=== PATIENT | female | born 1945 | race Caucasian/White ===

== ENCOUNTER 2016-06-26 21:40 | Observation (INO) | payer MEDICARE, OTHER ==
[~2016-06-26] VITALS: Ht 167.6 cm; Wt 99.6 kg
[2016-06-26 21:52] VITALS: BP 161/115; PULSE 148; RESP 18; O2SAT 96
--- NOTE | 2016-06-26 21:58 | ED.REPORT ---
HPI-Chest Pain 40 and Over Date of Service Jun 26, 2016 ED Provider: TylerjavadHiram Mckoy DO A 70 year old female with a history of diabetes and heartburn accompanied by her and daughter presents to the ED via EMS complaining of chest pain onset 1930 today while patient was sitting on her couch reading. She felt "gurgling" sensation in chest which radiated to jaws. She then felt pain in- between her shoulder blades. She has had a "rickety" jaw before but has never experienced chest pain like this. Per EMS, there were no obvious signs of ID, and she reports no history of ID. She denies any abdominal pain. She reports baseline SOB which acted up today while she was walking around in her house. She sweats very easily with movement. She has only gone into Afib once before, 20 years ago during an angiogram that required cardioversion. The patient reports having had an artery in the back of her heart that was not dilating, with the patient subsequently being put on Micardis for a while and then being put on HTC. She is unsure if she has had an angiogram in the past. She has never been diagnosed with CAD. She recently had increase in metformin drug which failed to reduce blood sugar level and resulted in baseline diarrhea. Nursing Notes Stated Complaint: CHEST PAIN Chief Complaint: Chest Pain Nursing Notes Reviewed: Yes Allergies: Coded Allergies: Iodinated Contrast Media - Oral and (Verified Allergy, Mild, Hives, 11/22/14 ) PATIENT STATES CONTRAST ALLERGY YEARS AGO DURING IVP. PATIENT STATES WAS GIVEN BENADRYL AND HAS BEEN PRE TREATED PRIOR TO RECEIVING CONTRAST SINCE. LL Penicillins (Verified Allergy, Unknown, 06/26/16) codeine (Verified Allergy, Unknown, 06/26/16) Uncoded Allergies: NOVACAINE (Allergy, Unknown, 06/26/16) Scheduled Calcium Carbonate/Vitamin D3 (Calcium + Vitamin D Tablet) 1 Each Tablet 1 EACH PO DAILY Cholecalciferol (Vitamin D3) (Vitamin D3) 2,000 Unit Capsule 4,000 UNIT PO DAILY Ferrous Sulfate, Dried (Iron) 159 Mg Tablet.er Unknown Dose PO BID Fluticasone Propionate (Fluticasone Propionate) 50 Mcg/Actuation [place].susp 15.8 ML NS DAILY Glipizide (Glipizide) 5 Mg Tablet 5 MG PO BID Hydrochlorothiazide (Hydrochlorothiazide) 25 Mg Tablet 15 MG PO DAILY Metformin (Metformin) 500 Mg Tablet 500 MG PO BID Pravastatin (Pravastatin) 10 Mg Tablet 10 MG PO HS Pregabalin (Lyrica) 75 Mg Capsule 75 MG PO DAILYWM Pregabalin (Lyrica) 150 Mg Capsule 150 MG PO HS Rivaroxaban (Xarelto) 1 Each Tab.ds.pk 1 EACH PO DAILY Telmisartan/HCTZ 80-25 mg (Micardis HCT 80-25 mg) 1 Each Tablet 1 TABLET PO DAILY Venlafaxine ER (Effexor XR) 150 Mg Capsule 150 MG PO DAILY Scheduled PRN Albuterol/Ipratropium (Combivent Respimat Inhal [place]) 120 Spr/4 Gm Inhaler 1 PUFF IH QID PRN PRN For Shortness of Breath Cyclobenzaprine (Cyclobenzaprine) 5 Mg Tablet 5 MG PO TID PRN PRN Spasm Hydrocodone-Acetaminophen 5-325 mg (Hydrocodone-Acetaminophen 5-325 mg) 1 Each Tablet 1 TABLET PO Q4H PRN PRN For Pain General Time Seen by MD: 21:57 Chief Complaint Chest pain Hx Obtained From: Patient, EMS Arrived By: Ambulance Sudden in Onset?: Yes Onset Occurred: 1 - 4 hours ago Symptom Duration: Since onset Severity: Current: Moderate Severity: Maximum: Moderate Recent Healthcare: No recent doctor visit Similar Sx Previous: No Past Medical History Past Medical History heartburn. Reports: Diabetes mellitus Past Surgical History endocardectomy. neck surgery. feet surgery. back surgery. Reports: Appendectomy, Cholecystectomy Ambulatory Status Independent Review of Systems Respiratory: Reports: Shortness of breath Cardiovascular: Reports: Chest pain GI: Denies: Abdominal pain Complete sys rev & neg: except as marked. Physical Exam Initial Vital Signs Vital Signs (First) Date Time Temp Pulse Resp B/P Pulse Ox O2 Delivery O2 Flow Rate FiO2 06/26/16 21:52 36.5 148 18 161/115 96 Room Air Initial VS: Reviewed General/Constitutional: Awake, Alert Respiratory / Chest: Atraumatic, Breath sounds NL, Breath sounds = bilat, No respiratory distress Heart Rate / Rhythm: Positive: Tachycardia heartbeat is irregularly irregular. Abdomen: Atraumatic, No guarding, No rebound Neck: Atraumatic, Full range of motion Back: Atraumatic, Full range of motion Lower Extremity / Pelvis / MS: Atraumatic, Full range of motion No lower extremity pain. Skin: Atraumatic diaphoretic Neurologic: Oriented X3, Speech NL Head / Eyes: Atraumatic, Normocephalic, PERRL, EOMI ENT: Atraumatic, Mucous membranes moist Upper Extremity / MS: Atraumatic, Full range of motion Wrist / Hand: Atraumatic, Full range of motion Ankle / Foot: Atraumatic, Full range of motion Interpretation & Diagnostics Lab Results Interpretation Result Diagram: 06/27/16 0655 06/27/16 0655 Test 06/26/16 21:45 Magnesium Level 1.8mg/dL (1.6-2.6) ECG Interpretation ECG Interpretation: Rate is 156. Afib with RVR. Time: 23:10 Interpreted by: ED physician ECG Interpretation: Rate is 64. Sinus Rhythm. spontaneously converted. Time: 00:39 Interpreted by: ED physician X-Ray Chest Interpretation Chest Xray Interpretation: Cardiomegaly, no infiltrates. Interpretation / Wet Read by: Wet read ED physician Re-Eval/Medical Decision Med Decision/Clinical Course 70-year-old female with history of diabetes, hypertension, and one remote episode of atrial fibrillation 20 years ago that happened while an angiogram was being performed requiring cardioversion presents with heart rate of 160 and feeling short of breath, diaphoretic, dizzy, and some heaviness/pressure in her chest. Diltiazem pushed. After diltiazem 20 mg IV was given a heart rate slowed from 160 down to approximately 110. At recheck her heart rate has risen back up to 140. Patient's chest pain, dizziness and shortness of breath resolved at this time. We tried labetalol 10 mg IV. Labetalol was ineffective and heart rate remained at 140, however blood pressure dropped to 115/70. Discussed cardioversion as patient is currently anticoagulated versus diltiazem drip. Patient elected diltiazem drip and admission to the hospital. When diltiazem was brought in the room, patient cardioverted spontaneously with a heart rate of 62. Repeat EKG performed which confirmed sinus rhythm. Initial lab work revealed leukocytosis and normal troponin. Repeat troponin is in the indeterminate range. Discussed observation admission patient with echocardiogram, and she notes that she would not feel comfortable going home. I believe the elevated troponin is from demand ischemia. No triggers for A. fib have been identified in the ER today. UA is pending at the time of admission. Source of Hx: Old records, EMS Time of Eval: 00:55 Re-Evaluation/Progress Note: Rechecked patient, explained test results and plan for admission. Patient understands and agrees with the plan. Consultation : Referral / Consult Name: Yael Dong MD Consulted With: Hospitalist Call Returned at: 01:00 [employer] Utility Worker: Will see patient, Agrees with eval, Accepts admit Note: Discussed patient case with Dr. Dong who accepts patient admit. Counseled Regarding: Diagnosis, Lab results, Need for admission Discharge & Departure Primary Impression: Atrial fibrillation with rapid ventricular response Additional Impressions: Elevated troponin Chest pain Chest pain type: chest pain due to myocardial ischemia Qualified Code: I20.9 - Angina pectoris, unspecified DERICK (acute kidney injury) Hyperglycemia Disposition: ADMITTED TO HOSPITAL Discharge Condition All VS Reviewed: Yes Condition: Stable Referrals: Dipesh Navarro MD (PCP) Crit Care Except Billable Proc Time Spent: 30-74 minutes Services Performed: Patient management by me, Time spent at bedside, Reviewing test results, Reviewing imaging, Discussing patient care, Documentation in record, Time with fam/surrogate Scribe Attestation Portions of this note were transcribed by Rosendo Stanford. I, Dr. Mack personally performed the history, physical exam and medical decision-making; I reviewed and confirmed the accuracy of the information in the transcribed note. Signed by: Adarsh Toney, 06/27/2016 0104. copies to: Dipesh Navarro MD, Gary R DO Jun 26, 2016 21:58 Rosendo Stanford Jun 26, 2016 22:16 119U/L (25-165) Total Protein 7.7g/dL (6.4-8.4) Albumin 4.4g/dL (3.4-5.0) Troponin T 0.016ug/L (0.0-0.011) ECG Interpretation ECG Interpretation: Rate is 156. Afib with RVR. Time: 23:10 Interpreted by: ED physician ECG Interpretation: Rate is 64. Sinus Rhythm. spontaneously converted. Time: 00:39 Interpreted by: ED physician X-Ray Chest Interpretation Chest Xray Interpretation: Cardiomegaly, but no infiltrates. Interpretation / Wet Read by: Wet read ED physician Re-Eval/Medical Decision Med Decision/Clinical Course After diltiazem 20 mg IV was given a heart rate slowed from 160 down to approximately 110. At recheck her heart rate has risen back up to 140. We will try labetalol 10 mg IV. Source of Hx: Old records, EMS Time of Eval: 00:55 Re-Evaluation/Progress Note: Rechecked patient, explained test results and plan for admission. Patient understands and agrees with the plan. Consultation : Referral / Consult Name: Yael Dong MD Consulted With: Hospitalist Call Returned at: 01:00 [employer] Worker: Will see patient, Agrees with eval, Accepts admit Note: Discussed patient case with Dr. Dong who accepts patient admit. Counseled Regarding: Diagnosis, Lab results, Need for admission Discharge & Departure Primary Impression: Elevated troponin Additional Impression: Chest pain Disposition: ADMITTED TO HOSPITAL Discharge Condition All VS Reviewed: Yes Condition: Stable Referrals: Dipesh Navarro MD (PCP) Scribe Attestation Portions of this note were transcribed by Rosendo Stanford. IDr. Mack personally performed the history, physical exam and medical decision-making; I reviewed and confirmed the accuracy of the information in the transcribed note. Signed by: Adarsh Toney, 06/27/2016 0104. copies to: Dipesh Navarro MD, Gary R DO Jun 26, 2016 21:58 Rosendo Stanford Jun 26, 2016 22:16
[2016-06-26 21:59] LABS: BASOPHILS % (AUTO) 0.3 % (0-3); EOSINOPHILS % (AUTO) 1.7 % (0-5); Mean Corpuscular Hemoglobin 29.2 pg (27.0-35.0); Mean Corpuscular Volume 90.8 fL (81-100); NEUTROPHILS % (AUTO) 59.9 % (40-74); Platelet Count 356 bil/L (150-400)
[2016-06-26] MEDS ORDERED: Diltiazem 5 mg/mL 5 mL Inj IVPUSH ONE (22:15)
[2016-06-26 22:17] VITALS: BP 155/98; PULSE 155; RESP 18; O2SAT 96
[2016-06-26 22:21] LABS: TROPONIN T 0.01 ug/L (0.0-0.011)
[2016-06-26 22:33] LABS: Magnesium 1.8 mg/dL (1.6-2.6)
[2016-06-26 23:08] VITALS: BP 133/96; PULSE 145; RESP 14; O2SAT 96
[2016-06-26] MEDS ORDERED: Labetalol 5 mg/mL 4 mL Inj IVPUSH ONE ×2 (23:15→23:40)
[2016-06-26 23:29] VITALS: BP 118/81; PULSE 117; RESP 18; O2SAT 95
[2016-06-26] MEDS ORDERED: Labetalol 5 mg/mL 20 mL Inj ONE (23:51)
[2016-06-26] MEDS: Diltiazem Inj 125 MG in 0.9% Sodium Chloride 100 ML, Pharmacy To Mix 1 EA IV SCH (23:55)
[2016-06-27] VITALS (11 sets, daily range): BP systolic 114–175; BP diastolic 52–82; PULSE 58–70; RESP 18–20; O2SAT 95–98
[2016-06-27] MEDS ORDERED: Ondansetron 2 mg/mL 2 mL Inj IVPUSH PRN ×2 (01:05→03:15)
[2016-06-27] MEDS ORDERED: Alum-Mag Hydrox-Simeth 30 mL Suspension PO PRN ×2 (01:05→03:15)
--- NOTE | 2016-06-27 03:12 | PCM.HPMED ---
Subjective Date of Service Jun 27, 2016 Primary Provider: Admitting Physician: Primary Care Physician: Dipesh Navarro MD Attending Physician: Chief Complaint: Chest pain History of Present Illness: Patient is a 70 year old female with a history of diabetes, Factor V Leiden with recurrent DVTs, on Xarelto, history of TIA, who presents to the ED via EMS complaining of chest pain onset 1930 today while patient was sitting on her couch reading. She states she felt "gurgling" sensation in her chest and chest pressure which radiated to jaws and between her shoulder blades. She states she has never experienced pain like this before. She denies any abdominal pain. She reports baseline shortness of breath on exertion which has worsened since March, to the point that she often becomes dyspneic when crossing the house or walking to the mailbox. She reports she sweats very easily with movement. She states she has only had afib once before, 20 years ago during an angiogram that required cardioversion. She has never been diagnosed with CAD and denies history of AL. She recently had increase in metformin dosage which failed to reduce blood sugar level and resulted in baseline diarrhea. She states she has been worked up for a thyroid mass that has been bothering her; she was seen by Dr. Oscar and diagnosed with multinodular goiter about 2 weeks ago. On 05/27/16, TSH was 0.857 and free T4 was 1.19. In the ED, HR was 148, BP 161/115, WBC 17.2, Cr 1.26, glucose 206. Troponin was initially 0.01, increased to 0.016. EKG showed afib with RVR. CXR was negative. She was given IV boluses of diltiazem and labetalol without success. A diltiazem drip was ordered but she then converted back into sinus rhythm before it was started. Review of Systems: Comprehensive review of systems conducted and was negative except for the pertinent positives listed above. Allergies Coded Allergies: Iodinated Contrast Media - Oral and (Verified Allergy, Mild, Hives, 11/22/14 ) PATIENT STATES CONTRAST ALLERGY YEARS AGO DURING IVP. PATIENT STATES WAS GIVEN BENADRYL AND HAS BEEN PRE TREATED PRIOR TO RECEIVING CONTRAST SINCE. LL Penicillins (Verified Allergy, Unknown, 06/26/16) codeine (Verified Allergy, Unknown, 06/26/16) Uncoded Allergies: NOVACAINE (Allergy, Unknown, 06/26/16) Home Medications Per [employer] Record (06/11/16) Effexor XR 150 mg capsule,extended release TAKE ONE CAPSULE BY MOUTH ONE TIME DAILY for mood Flexeril Oral Tablet 5 MG TAKE ONE TABLET BY MOUTH THREE TIMES DAILY NEEDED fluticasone 50 mcg/actuation nasal spray,suspension spray 1 spray by intranasal route every day in each nostril GlipiZIDE Oral Tablet 5 MG TAKE ONE TABLET BY MOUTH TWICE DAILY BEFORE MEALS hydrochlorothiazide 25 mg tablet take 1 tablet by oral route every day hydrocodone 5 mg-acetaminophen 325 mg tablet take 1 tablet by oral route every 6 hours as needed for pain Lyrica 75 mg capsule 1 am and 2 po QPM metformin ER 500 mg tablet,extended release 24hr take 1 tablet by oral route twice every day with meal for diabetes. Micardis HCT 80 mg-25 mg tablet TAKE ONE TABLET BY MOUTH ONE TIME DAILY for high blood pressure. nystatin 100,000 unit/gram topical cream apply by topical route 2 times every day to the affected area(s) omeprazole 20 mg capsule,delayed release take 1 capsule by oral route every day before a meal pravastatin 20 mg tablet take 1 Tablet by oral route every day for high cholesterol. Slow Release Iron 160 mg (50 mg iron) tablet,extended release take 1 tablet orally twice daily. Xarelto 20 mg tablet TAKE ONE TABLET BY MOUTH WITH THE EVENING MEAL Zyrtec 10 mg tablet take 1 tablet by oral route every day PMH Factor V Leiden Recurrent DVTs Hypertension Obstructive sleep apnea Depression History of TIA GERD Diabetes mellitus Surgical History Endocardectomy. Neck surgery. Feet surgery. Back surgery. Appendectomy Cholecystectomy Family History Grandmother: of AL at 67 Other grandmother: AL Grandfather: AL Mother: Stroke Aunt: Stroke Social History Hx Alcohol Use: No Hx Substance Use: No Exam Vital Signs Vital Sign - Last Date Time Temp Pulse Resp B/P Pulse Ox O2 Delivery O2 Flow Rate FiO2 06/27/16 00:41 36.7 62 18 142/69 98 Room Air Exam General: Alert, Oriented X3, Cooperative, No acute distress Head: Normocephalic, atraumatic. External ears normal. Eyes: PERRLA, EOMI. Anicteric sclerae. Mouth: Mouth normal, Mucous membranes moist/pink Neck: Neck supple with full range of motion. Chest& Lungs: Clear to auscultation bilaterally with no crackles, wheezes, or rhonchi. Cardiovascular: Regular rate/rhythm, Normal S1, Normal S2, No murmurs/rubs/ gallops Abdomen: Non-tender, Non-distended, No masses, Normoactive bowel tones, Soft Musculoskeletal: Normal range of motion Extremities: Mild-moderate bilateral lower extremity edema Neurological: Grossly neurologically intact. Normal speech Lab and Diagnostics Result Diagram: 06/26/16214406/26/162144 Assessment & Plan Patient is a 70 year old female with a history of diabetes, Factor V Leiden with recurrent DVTs, on Xarelto, history of TIA, who presents to the ED via EMS complaining of chest pain. Admitted for afib with RVR. 1. Atrial fibrillation with rapid ventricular rate, acute. Present on admission. - Pt presented with afib in 150s, which spontaneously converted back to sinus rhythm. - Monitor on telemetry - Continue home Xarelto - Recheck TSH 2. Acute kidney injury. Present on admission. - Pt presents with mild DERICK (Cr 1.26) after afib with RVR, likely due to poor perfusion. Baseline Cr around 1.0. - NS @ 80 ml/hr - CMP in AM 3. Elevated troponin, acute. Present on admission. - Troponin became elevated after admission (0.01 --> 0.016). Likely secondary to demand ischemia. - Continue to trend troponin 4. Diabetes mellitus type 2 - BG 206 on admission. - Humalog medium dose correctional scale - Hold home metformin and glipizide - A1c ordered 5. Factor V Leiden with recurrent DVTs - Patient on Xarelto at home; will continue 6. Hypertension - Continue home telmisartan and HCTZ 7. Hyperlipidemia - Continue home pravastatin 8. Depression - Continue home Effexor 9. GERD - Protonix 20 mg daily 10. Chronic back pain - Continue home Lyrica, Flexeril, [place] 11. Other chronic conditions Obstructive sleep apnea History of TIA Note: Med Rec not complete. Day team to reconcile. - Bowel regimen as needed - Antiemetic as needed Patient is admitted under observation status with expected length of stay less than 2 midnights due to severity of presenting symptoms, risk of adverse event, and complexity of treatment plan. VTE Prophylaxis: Sub-Q Heparin (Unfractionated) Resuscitation Status: CPR: Attempt Resuscitation Attending Statement Pt seen and examined by myself and agree with above plan. Jean No Jun 27, 2016 01:12 Yael Dong MD Jun 27, 2016 06:27
[2016-06-27] MEDS ORDERED: Polyethylene Glycol (PEG) 17 Gm Powder PO PRN (03:15)
[2016-06-27] MEDS ORDERED: Glucose 40% Oral Gel 15 Gm Tube PO PRN (03:15)
[2016-06-27 04:52] LABS: APPEARANCE,URINE CLEAR (CLEAR,HAZY); COLOR,URINE YELLOW (YELLOW); OCCULT BLOOD,URINE SMALL (NEGATIVE); PH,URINE 5.5 (5.0-8.0); UROBILINOGEN,URINE NORMAL (NORMAL)
[2016-06-27] MEDS: 0.9% Sodium Chloride 1,000 ML IV SCH ×2 (05:02→16:08)
--- NOTE | 2016-06-27 05:21 | NUR ---
admit: admit questions complete, daughter to bring in med list in am, and CPAP. pt denies chest pain/discomfort/SOB. VSS. Tele SR 60's. pt is A&OX3 cooperative with care. UA sent. will continue to monitor.
[2016-06-27 07:09] LABS: BASOPHILS % (AUTO) 0.4 % (0-3); EOSINOPHILS % (AUTO) 2.2 % (0-5); MONOCYTES % (AUTO) 6.8 % (4-12); Mean Corpuscular Volume 91.5 fL (81-100); NEUTROPHILS % (AUTO) 47.6 % (40-74); Platelet Count 292 bil/L (150-400)
[2016-06-27] MEDS: Pantoprazole 20 mg ER24 Tablet PO SCH (07:59)
[2016-06-27] MEDS: Insulin LISPRO 300 Unit/3 mL Inj SUBQ SCH ×4 (08:00→20:44)
--- NOTE | 2016-06-27 08:13 | DRSVH ---
PROCEDURE: X-RAY CHEST ONE VIEW, PORTABLE ([id number]) INDICATIONS: chest pain TECHNIQUE: One view of the chest was acquired. COMPARISON: None. FINDINGS: Surgical changes and devices: Cervical fixation hardware is partially visualized and is grossly intac t. Lungs and pleura: Lung volumes are low. There is mild prominence of interstitium. Mediastinum: Mediastinal contours appear normal. Heart size is mildly enlarged. Bones and chest wall: No suspicious bony lesions. Overlying soft tissues appear unremarkable. IMPRESSION: Low lung volumes, mild interstitial prominence, and mild cardiomegaly. These findings may be associated with mild fluid overload. Dictated by: Kayla St M.D. on 06/27/2016 at 8:11 Approved by: Kayla St M.D. on 06/27/2016 at 8:12
[2016-06-27] MEDS ORDERED: Influenza (Adult) Vaccine 0.5 mL Syringe IM ONE (08:30)
[2016-06-27] MEDS: Heparin 5,000 Unit/mL Inj SUBQ SCH ×2 (08:52→16:38)
[2016-06-27] MEDS ORDERED: GLPZ5T PO (09:21)
[2016-06-27] MEDS ORDERED: PREG150C PO (09:21)
[2016-06-27] MEDS ORDERED: HYDR-4003 PO (09:21)
[2016-06-27] MEDS ORDERED: HYDR25TA4 PO (09:21)
[2016-06-27] MEDS ORDERED: VENL150C PO (09:21)
[2016-06-27] MEDS ORDERED: METF500T4 PO (09:21)
[2016-06-27] MEDS ORDERED: TELM1TAB PO (09:21)
[2016-06-27] MEDS ORDERED: IPRA4AER IH (09:21)
[2016-06-27] MEDS ORDERED: PREG75CA PO (09:21)
[2016-06-27] MEDS ORDERED: FLUT15.88 NS (09:21)
[2016-06-27] MEDS ORDERED: FERR159T2 PO (09:21)
[2016-06-27] MEDS ORDERED: PRAV10TA2 PO (09:21)
[2016-06-27] MEDS ORDERED: CHOL200047 PO (09:21)
[2016-06-27] MEDS ORDERED: CALC-140 PO (09:21)
[2016-06-27] MEDS ORDERED: RIVA1TAB PO (09:21)
[2016-06-27] MEDS ORDERED: CYCL5TAB PO (09:21)
[2016-06-27] MEDS ORDERED: TELMISARTAN PO SCH (12:00)
[2016-06-27] MEDS ORDERED: HCTZ PO SCH (12:00)
--- NOTE | 2016-06-27 12:06 | NUR ---
GREGORIO explained and signed. Copy of GREGORIO and Medicare self administered medication information provided.
[2016-06-27] MEDS ORDERED: Albuterol-Ipratropium 3 mL Inhalation Solution NEB PRN (12:15)
[2016-06-27] MEDS: Venlafaxine XR 75 mg ER24 Capsule PO SCH (12:56)
--- NOTE | 2016-06-27 15:11 | NUR ---
Social Work: Initial Assessment Data & Assessment: See Initial Assessment. EMR Reviewed. Patient is a 70 year old female that admitted on 06/27/16 due to AFIB with RVR/Eleveted Trop. per H& P. Building Construction Superintendent met with patient and patient's daughter at bedside to complete initial assessment, Social Work role explained and discharge planning discussed. Advanced directives were discussed and SW provided patient with Advance directive paperwork. Patient does not have Advance Directives. Patient confirmed that his PCP is Dr. Dipesh Navarro. Patient's insurance is Medicare and [employer] as secondary. Patient does not have any LTC or VA benefits. Patient does not have a re-admit score. Patient reports that she is independent at baseline but does have access to a walker and cane if needed. Patient reports no HH or SNF history. Patient lives at home with his in a one story home with five steps to enter. Pt's family to provide transport home at discharge. SW provided phone number and plan on white board in room. SW will continue to follow. Plan: Pt to likely discharge home no needs via POV. SW will continue to follow. Nora Tapia LMSW, RAMÍREZ Addendum: 06/27/16 at 1519 by NORA TAPIA Amended: Links added.
--- NOTE | 2016-06-27 17:35 | DRSVH ---
[facility] [address] [place] [address] Echocardiogram Report Name: MARCOS BRANDT LStudy Date: 03/2017 Height: 66 in Hospital Exam Location: [facility] Weight: 220 lb Gender: Female BSA: 2.1 m2 : 1945 Age: 70 yrs BP: 114/64 mmHg Reason For Study: CHEST PAIN, A-FIB. Ordering Physician: Performed By: Padmini Art Referring Physician: Dipesh Navarro Interpretation Summary The patient was in normal sinus rhythm during the exam. The left ventricular cavity is small. The ejection fraction is estimated to be 70-75%. There are no focal wall motion abnormalities. Assessment of diastolic parameters indicates normal left ventricular diastolic function and normal filling pressures. The right ventricle grossly appears normal in size with probable normal systolic function. There is no significant valvular heart disease. The echocardiogram is within normal limits. Procedure: A two-dimensional transthoracic echocardiogram with color flow and Doppler was performed. The study quality was technically difficult. A contrast injection of Definity was performed to improve assessment of LV function. Contrast was injected into an intravenous site in the right arm. A total of 5 cc of contrast was given. There is no prior echocardiogram noted for this patient. The patient was in normal sinus rhythm during the exam. Left Ventricle: The left ventricular cavity is small. The ejection fraction is estimated to be 70-75%. There are no focal wall motion abnormalities. Spectral Doppler of the mitral valve shows a normal E/A wave ratio. Assessment of diastolic parameters indicates normal left ventricular diastolic function and normal filling pressures. Right Ventricle: The right ventricle grossly appears normal in size with probable normal systolic function. Atria: The left atrium is mildly dilated. Right atrial size is normal. There is no Doppler evidence for an atrial septal defect. Mitral Valve: The mitral valve is grossly normal. There is mild mitral annular calcification. There is no mitral regurgitation noted. Aortic Valve: The aortic valve is not well visualized. The aortic valve opens well. No aortic regurgitation is present. Tricuspid Valve: The tricuspid valve is not well visualized, but is grossly normal. No tricuspid regurgitation. Pulmonic Valve: The pulmonic valve is not well visualized. There is no pulmonic valvular regurgitation. Great Vessels: The aortic root is normal size. The dimensions of the ascending aorta are normal. The pulmonary artery is normal size. The IVC was not well visualized secondary to technical limitations making central venous pressures difficult to estimate. Pericardium/ Pleura There is no pericardial effusion. There is no pleural effusion. MMode/2D Measurements & Calculations LVIDd: 4.6 cm LA dimension: 4.3 cm RA long axis LVOT diam: 2.1 cm LVIDs: 3.5 cm AoV Opening FS: 24.9 % LA A2 area: 25.8 cm RA area EPSS: 1.0 cm LA A4 area: 21.2 cm Ao root diam IVSd: 1.1 cm LA length (vol) : 18.3 cm LVPWd: 1.2 cm RA vol asc Aorta Diam LA vol: 86.2 ml : 54.7 ml LA vol index RA Ao Arch Diam (Prox : 26.2 mm2 Trans): 3.0 cm : 41.4 ml/m2 LV ryder. diameter/BSA LV sys. diameter/BSA (cm/m^2): 2.2 (cm/m^2): 1.7 Doppler Measurements & Calculations Ao V2 max MV E max edward MV E/A: 1.4 PA V2 max : 175.0 cm/sec : 103.0 cm/sec Med Peak E' Edward : 115.7 cm/sec Ao max PG MV A max edward PA mean PG : 12.3 mmHg : 75.6 cm/sec E/E' med: 10.1 Ao mean PG MV P1/2t: 72.4 msec Lat Peak E' Edward PA Accel Time : 0.09 sec LVOT Max Edward E/E' lat: 9.7 : 130.2 cm/sec E/e' average: 9.9 Pulm A Revs Dur MAHESH(I,D): 2.7 cm sev ratio MV A dur: 0.14 sec MV dec time MV P1/2t max edward Ao V2 mean LV V1 max PG : 0.26 sec : 110.9 cm/sec MVA(P1/2t): 3.0 cm2 Ao V2 VTI: 39.3 cm LV V1 VTI MAHESH(V,D): 2.6 cm2 : 30.8 cm PA V2 mean MAHESH indexed to BSA Pulelaine Cain Revs Dur - MV : 83.7 cm/sec (cm^2/m^2): 1.3 A Dur: 0.01 msec Reading Physician:05:34 PM
[2016-06-27] MEDS: Diltiazem Inj 125 MG in 0.9% Sodium Chloride 100 ML, Pharmacy To Mix 1 EA IV SCH (23:14)
[2016-06-28] VITALS (12 sets, daily range): BP systolic 130–184; BP diastolic 73–85; PULSE 61–69; RESP 16–18; O2SAT 96–97
[2016-06-28] MEDS: Heparin 5,000 Unit/mL Inj SUBQ SCH (00:30)
--- NOTE | 2016-06-28 01:24 | NUR ---
Mobility Pt has remained SBA to the bathroom so far this shift. Pt has been up several times ns has required minimal assistance to achieve a standing position. Pt has had a stable cardiac rhythm all night and no complaints of chest discomfort.
[2016-06-28] MEDS: 0.9% Sodium Chloride 1,000 ML IV SCH (04:15)
[2016-06-28 07:02] LABS: BASOPHILS % (AUTO) 0.3 % (0-3); EOSINOPHILS % (AUTO) 4.2 % (0-5); MONOCYTES % (AUTO) 7.6 % (4-12); Mean Corpuscular Hemoglobin 29.3 pg (27.0-35.0); Mean Corpuscular Volume 92.6 fL (81-100); NEUTROPHILS % (AUTO) 44.2 % (40-74); Platelet Count 251 bil/L (150-400)
[2016-06-28] MEDS: Insulin LISPRO 300 Unit/3 mL Inj SUBQ SCH ×4 (08:00→22:00)
[2016-06-28] MEDS: Venlafaxine XR 75 mg ER24 Capsule PO SCH (08:29)
[2016-06-28] MEDS ORDERED: Calcium Carbonate (Oyster Shell) 500 mg Tablet PO SCH (08:30)
[2016-06-28] MEDS: Pantoprazole 20 mg ER24 Tablet PO SCH (08:34)
--- NOTE | 2016-06-28 10:18 | PCM.PNMED ---
Subjective Date of Service Jun 28, 2016 Subjective Asuncion reports she is doing better this morning, but continues to have some lightheadedness with standing up and some exertional dyspnea. She has not had any CP since admission. Exam Vital Signs Vital Sign - Last Date Time Temp Pulse Resp B/P Pulse Ox O2 Delivery O2 Flow Rate FiO2 06/28/16 10:06 36.7 67 16 130/77 97 Room Air Intake and Output 06/27/16 06/27/16 06/28/16 Cumulative From/Thru 15:00 23:00 07:00 06/26/16 21:52 - 06/28/16 06:03 Intake Total 1872 ml 236 ml 2108 ml Output Total 1507 ml 1200 ml 2857 ml Balance 365 ml -964 ml -749 ml Intake Oral 837 ml 236 ml 1073 ml IV Total 1035 ml 1035 ml Output Urine Total 1500 ml 1200 ml 2850 ml Stool Total 7 ml 7 ml Exam General: Alert, Oriented X3, Cooperative, No acute distress Chest& Lungs: Clear to auscultation bilaterally with no crackles, wheezes, or rhonchi. Cardiovascular: Regular rate/rhythm, Normal S1, Normal S2, No murmurs/rubs/ gallops Abdomen: Non-tender, Non-distended, No masses, Normoactive bowel tones, Soft Musculoskeletal: Normal range of motion Neurological: Grossly intact, no focal weakness. IVs and Medications Medications Reviewed: Medications were reviewed in detail Lab and Diagnostics Result Diagram: 06/28/1660606/28/16606 Assessment & Plan Patient is a 70 year old female with a history of diabetes, Factor V Leiden with recurrent DVTs, on Xarelto, history of TIA, who presents to the ED via EMS complaining of chest pain. Admitted for afib with RVR. 1. Atrial fibrillation with rapid ventricular rate, acute. Present on admission. - Pt presented with afib in 150s, which spontaneously converted back to sinus rhythm. She reports her chest pain symptom was more of a chest flutter and palpitation with some mild heaviness. This resolved after her Afib converted back to NSR. - Monitor on telemetry - Continue home Xarelto - TSH 1.52 - Continues to be in NSR 2. Acute kidney injury. Present on admission. Resolved - Pt presents with mild DERICK (Cr 1.26) after afib with RVR, likely due to poor perfusion. Baseline Cr around 1.0. - NS discontinued - Resolved today after hydration. 3. Elevated troponin, acute. Present on admission. - Troponin became elevated after admission (0.01 --> 0.016). Likely secondary to demand ischemia. - Troponin elevated to 0.03, but then trended downwards after. - Will plan for MIBI stress test, patient has severe neuropathy and is unable to do an ETT. 4. Diabetes mellitus type 2 - BG 206 on admission. - Humalog medium dose correctional scale - Hold home metformin and glipizide - A1c ordered 5. Factor V Leiden with recurrent DVTs - Patient on Xarelto at home; will continue 6. Hypertension - Continue home telmisartan and HCTZ 7. Hyperlipidemia - Continue home pravastatin - Elevated Triglycerides only on Lipid Panel here. 8. Depression - Continue home Effexor 9. GERD - Protonix 20 mg daily 10. Chronic back pain - Continue home Lyrica, Flexeril, [place] 11. Other chronic conditions Obstructive sleep apnea - using own CPAP History of TIA - Bowel regimen as needed - Antiemetic as needed Dispo: Likely discharge tomorrow after MIBI stress test if stable. Pain Evaluation: Adequate Pain Control VTE Prophylaxis: Sub-Q Heparin (Unfractionated) VTE Mechanical Devices: Venous Foot Pump Resuscitation Status: CPR: Attempt Resuscitation Attending Statement The patient was seen and examined together with Dr. Julian on 06/28/16 and I agree with the history, exam and plan as outlined in the note above. Domenic Julian DO Jun 28, 2016 10:12 Forest Garnett Jun 29, 2016 17:54
--- NOTE | 2016-06-28 14:47 | NUR ---
Social Work-readiness for discharge: Data:EMR reviewed. Pt is on day 1 of hospitalization for AFIB per H&P. Pt will likely be ready to discharge tomorrow. Pt resides at home with where she remains independent with ADLs. Pt has been up independent in her room. No anticipated discharge needs. SW will continue to follow. Assessment:Pt who is independent at baseline. Plan:Pt to discharge home when medically stable via POV. No anticipated discharge needs. SW will continue to follow. ROB Jimenez
--- NOTE | 2016-06-28 18:28 | NUR ---
shift summary Pt is a SBA to bathroom, reports some dizziness with standing and ambulation. Orthostatic vital signs are checked. On tele- stable cardiac rhythm. Complains of neuropathic pain and was given tylenol x1.
[2016-06-29 01:03] VITALS: BP 185/81; PULSE 69; RESP 18; O2SAT 97
[2016-06-29 04:57] VITALS: BP_SYST 154; BP_SYST 169; BP_SYST 171; BP_DIAS 78; BP_DIAS 89; BP_DIAS 92; PULSE 64; RESP 18; O2SAT 96
--- NOTE | 2016-06-29 05:45 | NUR ---
Pain: Pt c/o generalized back/leg pain which is chronic for pt; Tylenol administered and ice pack, effective. Pt denied chest pain and SOB. Pt slept most of the night, pleasant and cooperative with care.
[2016-06-29] MEDS: Insulin LISPRO 300 Unit/3 mL Inj SUBQ SCH ×3 (08:00→17:11)
[2016-06-29 08:15] VITALS: PULSE 64; RESP 18; O2SAT 97
--- NOTE | 2016-06-29 09:00 | NUR ---
Pt off Floor for Stress Test Tele notified and removed, Taken down in WC. No s/sx of distress.
[2016-06-29 10:49] VITALS: PULSE 61
[2016-06-29 11:29] VITALS: BP 150/75; PULSE 71
[2016-06-29] MEDS: Pantoprazole 20 mg ER24 Tablet PO SCH (11:51)
[2016-06-29] MEDS: Venlafaxine XR 75 mg ER24 Capsule PO SCH (11:53)
[2016-06-29] MEDS ORDERED: Calcium Carbonate (Oyster Shell) 500 mg Tablet PO SCH (12:13)
[2016-06-29 13:05] VITALS: BP 161/72; PULSE 71; RESP 18; O2SAT 96
--- NOTE | 2016-06-29 15:06 | DRSVH ---
PROCEDURE: ONE DAY PHARMACOLOGICAL STRESS TEST. Rest and pharmacological stress myocardial perfusio n SPECT with gated imaging and ejection fraction RADIOPHARMACEUTICAL: 10.8 mCi Tc-99m tetrofosmin IV at rest and 30.8 mCi Tc-99m tetrofosmin IV at pe ak effect of pharmacological stress. A [id number] was performed. INDICATIONS: CHEST PAIN TECHNIQUE: Radiopharmaceutical was injected at peak stress test and also at rest. SPECT images were obtained. SPECT myocardial perfusion images were displayed in short axis, horizontal long axis, and vertical long axis views. Gated images were reviewed using MyTime software. COMPARISON: None. CARDIAC STRESS: A pharmacologic stress test was performed under the supervision of attending staff u sing an infusion of Lexiscan as per protocol. Hemodynamic Data: There is normal blood pressure and heart rate response to pharmacologic stress. Symptoms: The patient had some chest pain and nausea, which resolved with 100 mg of IV aminophylline . Aminophylline: IV aminophylline was given (100 mg). EKG: Baseline rhythm was sinus with some nonspecific ST-T changes. During stress there was no convi ncing ischemic change. The patient had some intermittent PVCs without any ventricular tachycardia. FINDINGS: Raw Data: There appears to be adequate myocardial uptake. Breast shadow was seen. Left Ventricular Function: The stress LV ejection fraction was 84%. Left ventricular function appea rs to be hyperdynamic. I do not see any obvious wall motion abnormalities. On visual inspection, I do not see any significant transient ischemic dilatation. Resting LV and diastolic volume is 71 mL. Myocardial Perfusion: Resting supine and stress prone images reveal mildly decreased perfusion of th e distal anterior wall and apex, however, stress supine images reveal normal myocardial perfusion. I do not see any convincing ischemia infarction present. IMPRESSION: Stress supine images reveal normal myocardial perfusion, hence, I will call this study a normal myocardial perfusion study. Left ventricular function is hyperdynamic. Overall this is a lo w-risk myocardial perfusion scan. Dictated by: Aston Cheema M.D. on 06/29/2016 at 14:11 Transcribed by: LAISHA on 06/29/2016 at 18:05 Approved by: Aston Cheema M.D. on 06/30/2016 at 12:45
--- NOTE | 2016-06-29 15:28 | PCM.DIMED ---
Discharge Instructions Date of Service Jun 29, 2016 Dates of Hospitalization Jun 27, 2016 at 01:35 Discharge Diagnosis Discharge Diagnosis Atrial fibrillation with rapid ventricular rate Acute kidney injury. Present on admission. Resolved Elevated troponin - stable Diabetes mellitus type 2 Factor V Leiden with recurrent DVTs Hypertension Hyperlipidemia Depression GERD Chronic back pain Obstructive sleep apnea - using own CPAP History of TIA Medication Instructions Continue taking your medications as instructed Drink at least 4-5 glasses of water daily to keep from being dehydrated Diet Heart Healthy Activity No restrictions Call your provider Fever or Chills, Shortness of breath, Chest pain, Weakness (unilateral) Patient Instructions Please follow up with your PCP within 1 week to follow up on your Atrial fibrillation admission Follow-up Provider: Dipesh Navarro MD Follow-up with PCP in: 1 week Domenic Julian DO Jun 29, 2016 15:27
--- NOTE | 2016-06-29 16:36 | NUR ---
Social Work-discharge: Data:EMR reviewed. Pt is on day 2 of hospitalization for AFIB per H&P. Pt is medically stable for discharge. Pt has been up independent in her room. No discharge needs identified. All updated and agreeable to plan. Assessment:pt who is independent at baseline. Plan:Pt to discharge home when medically stable via POV. No discharge needs identified. All updated and agreeable to plan. ROB Jimenez
--- NOTE | 2016-06-29 17:03 | PCM.DC.MED ---
Discharge Summary Date of Service Jun 29, 2016 Dates of Hospitalization Date of Hospital Admission Jun 27, 2016 at 01:35 Date of Discharge: Jun 29, 2016 Providers: Admitting Physician: Yael Dong MD Primary Care Physician: Dipesh Navarro MD Attending Physician: Yael Dong MD Diagnosis at Time of Discharge Diagnosis at Time of Discharge Paroxysmal Atrial fibrillation with rapid ventricular rate Acute kidney injury. Present on admission. Resolved Elevated troponin - stable Diabetes mellitus type 2 Factor V Leiden with recurrent DVTs Hypertension Hyperlipidemia Depression GERD Chronic back pain Obstructive sleep apnea - using own CPAP History of TIA Procedures XRay, CTs & MRIs cxr portable IMPRESSION: Low lung volumes, mild interstitial prominence, and mild cardiomegaly. These findings may be associated with mild fluid overload. Other Diagnostics stress test IMPRESSION: Stress supine images reveal normal myocardial perfusion, hence, I will call this study a normal myocardial perfusion study. Left ventricular function is hyperdynamic. Overall this is a low-risk myocardial perfusion scan. Brief History Patient is a 70 year old female with a history of diabetes, Factor V Leiden with recurrent DVTs, on Xarelto, history of TIA, who presents to the ED via EMS complaining of chest pain onset 1930 today while patient was sitting on her couch reading. She states she felt "gurgling" sensation in her chest and chest pressure which radiated to jaws and between her shoulder blades. She states she has never experienced pain like this before. She denies any abdominal pain. She reports baseline shortness of breath on exertion which has worsened since March, to the point that she often becomes dyspneic when crossing the house or walking to the mailbox. She reports she sweats very easily with movement. She states she has only had afib once before, 20 years ago during an angiogram that required cardioversion. She has never been diagnosed with CAD and denies history of GA. She recently had increase in metformin dosage which failed to reduce blood sugar level and resulted in baseline diarrhea. She states she has been worked up for a thyroid mass that has been bothering her; she was seen by Dr. Oscar and diagnosed with multinodular goiter about 2 weeks ago. On 05/27/16, TSH was 0.857 and free T4 was 1.19. In the ED, HR was 148, BP 161/115, WBC 17.2, Cr 1.26, glucose 206. Troponin was initially 0.01, increased to 0.016. EKG showed afib with RVR. CXR was negative. She was given IV boluses of diltiazem and labetalol without success. A diltiazem drip was ordered but she then converted back into sinus rhythm before it was started. Hospital Course Patient is a 70 year old female with a history of diabetes, Factor V Leiden with recurrent DVTs, on Xarelto, history of TIA, who presents to the ED via EMS complaining of chest pain. Admitted for afib with RVR and chest pain. She converted back to NSR fairly rapidly. She had an echocardiogram and chemical stress test which were reassuring and did not indicate any acute ischemic disease. With the reassuring procedures and the quickly resolved chest pain, patient was discharged in good condition with follow up. Her Afib was likely due to dehydration and recent URI. 1. Atrial fibrillation with rapid ventricular rate, acute. Present on admission. - Pt presented with afib in 150s, which spontaneously converted back to sinus rhythm. She reports her chest pain symptom was more of a chest flutter and palpitation with some mild heaviness. This resolved after her Afib converted back to NSR. - Monitor on telemetry - Continued home Xarelto - TSH 1.52 - Continued to be in NSR 2. Acute kidney injury. Present on admission. Resolved - Pt presents with mild DERICK (Cr 1.26) after afib with RVR, likely due to poor perfusion. Baseline Cr around 1.0. - Resolved after hydration. 3. Elevated troponin, acute. Present on admission. - Troponin became elevated after admission (0.01 --> 0.016). Likely secondary to demand ischemia. - Troponin elevated to 0.03, but then trended downwards after. - Had a chemical stress test 4. Diabetes mellitus type 2 - BG 206 on admission. - Humalog medium dose correctional scale - Hold home metformin and glipizide - A1c - 7.2 during this admission 5. Factor V Leiden with recurrent DVTs - Patient on Xarelto at home 6. Hypertension - Continued home telmisartan and HCTZ 7. Hyperlipidemia - Continued home pravastatin - Elevated Triglycerides only on Lipid Panel here. 8. Depression - Continued home Effexor 9. GERD - Protonix 20 mg daily 10. Chronic back pain - Continued home Lyrica, Flexeril, [place] 11. Other chronic conditions Obstructive sleep apnea - used own CPAP History of TIA Exam Vital Signs (Last) Date Time Temp Pulse Resp B/P Pulse Ox O2 Delivery O2 Flow Rate FiO2 06/29/16 15:54 Room Air 06/29/16 13:05 36.6 71 18 161/72 96 Exam General: Alert, Oriented, Cooperative, No acute distress Chest& Lungs: Clear to auscultation bilaterally with no crackles, wheezes, or rhonchi. Cardiovascular: Regular rate/rhythm, Normal S1, Normal S2, No murmurs/rubs/ gallops Abdomen: Non-tender, Non-distended, No masses, Normoactive bowel tones, Soft Musculoskeletal: Normal range of motion Neurological: Grossly intact, no focal weakness. Test 06/26/16 21:45 06/27/16 04:10 06/27/16 06:55 06/27/16 09:00 Magnesium Level 1.8mg/dL (1.6-2.6) Urine Color Yellow (YELLOW) Urine Appearance Clear (CLEAR,HAZY) Urine pH 5.5 (5.0-8.0) Urine Specific [place] 1.020 (1.003-1.035) Urine Protein Negativemg/dL (NEG,TRACE) Urine Glucose (UA) Negativemg/dL (NEGATIVE) Urine Ketones Negativemg/dL (NEGATIVE) Urine Occult Blood Small (NEGATIVE) Urine Nitrite Negative (NEGATIVE) Urine Bilirubin Negative (NEGATIVE) Urine Urobilinogen Normalmg/dL (NORMAL) Urine Leukocyte Esterase Trace (NEGATIVE) Urine RBC 0-2/hpf (0-2) Urine WBC 6-10/hpf (0-5) Urine Epithelial Cells Occasional/hpf (NONE-MOD) Urine Crystals None seen (NONE SEEN) Urine Bacteria None/hpf (NONE-FEW) Urine Hyaline Casts None/lpf (NONE) Urine Granular Casts None seen (NONE SEEN) Urine Waxy Casts None seen (NONE SEEN) Urine Red Blood Cell Casts None seen (NONE SEEN) Urine White Blood Cell Casts None seen (NONE SEEN) Urine Mucus None seen (None Seen) Urine Trichomonas None seen (NONE SEEN) Urine Yeast None (NONE SEEN) Urine Culture Reflexed Indicated Hemoglobin A1c 7.2% (4.8-5.6) Total Bilirubin 0.2mg/dL (0.0-1.2) Aspartate Amino Transf (AST/SGOT) 13U/L (0-50) Alanine Aminotransferase (ALT/SGPT) 15U/L (0-32) Alkaline Phosphatase 97U/L (25-165) Total Protein 5.8g/dL (6.4-8.4) Albumin 3.8g/dL (3.4-5.0) Thyroid Stimulating Hormone (TSH) 1.520uIU/mL (0.450-4.500) Triglycerides Level 383mg/dL (0-149) Cholesterol Level 199mg/dL (100-199) LDL Cholesterol, Calculated 71.400mg/dL (0-99) VLDL Cholesterol 76.600mg/dL HDL Cholesterol 51mg/dL (>39) Cholesterol/HDL Ratio 3.90 (0.0-4.4) Test 06/27/16 14:51 06/28/16 06:07 Troponin T 0.018ug/L (0.0-0.011) White Blood Count 8.7th/mm3 (3.8-10.1) Red Blood Count 3.65mil/mm3 (3.90-5.20) Hemoglobin 10.7g/dL (12.0-15.6) Hematocrit 33.8% (35.0-46.0) Mean Corpuscular Volume 92.6fL (81-100) Mean Corpuscular Hemoglobin 29.3pg (27.0-35.0) Mean Corpuscular Hemoglobin Concent 31.7% (32.0-37.0) Red Cell Distribution Width 13.7% (12.3-15.4) Platelet Count 251bil/L (150-400) Neutrophils (%) (Auto) 44.2% (40-74) Lymphocytes (%) (Auto) 43.6% (14-46) Monocytes (%) (Auto) 7.6% (4-12) Eosinophils (%) (Auto) 4.2% (0-5) Basophils (%) (Auto) 0.3% (0-3) Sodium Level 140mEq/L (134-144) Potassium Level 4.3mEq/L (3.5-5.2) Chloride Level 102mEq/L (97-108) Carbon Dioxide Level 23mmol/L (18-29) Blood Urea Nitrogen 21mg/dL (8-27) Creatinine 0.90mg/dL (0.57-1.00) Estimat Glomerular Filtration Rate 89mL/min (>59) Glucose Level 147mg/dL (60-99) Calcium Level 8.3mg/dL (8.5-10.1) Discharge Medications Discharge Medications Calcium Carbonate/Vitamin D3 (Calcium + Vitamin D Tablet) 1 Each Tablet 1 EACH PO DAILY (Reported) Cholecalciferol (Vitamin D3) (Vitamin D3) 2,000 Unit Capsule 4,000 UNIT PO DAILY (Reported) Ferrous Sulfate, Dried (Iron) 159 Mg Tablet.er Unknown Dose PO BID (Reported) Fluticasone Propionate (Fluticasone Propionate) 50 Mcg/Actuation [place].susp 15.8 ML NS DAILY (Reported) Glipizide (Glipizide) 5 Mg Tablet 5 MG PO BID (Reported) Hydrochlorothiazide (Hydrochlorothiazide) 25 Mg Tablet 15 MG PO DAILY (Reported ) Metformin (Metformin) 500 Mg Tablet 500 MG PO BID (Reported) Pravastatin (Pravastatin) 10 Mg Tablet 10 MG PO HS (Reported) Pregabalin (Lyrica) 75 Mg Capsule 75 MG PO DAILYWM (Reported) Pregabalin (Lyrica) 150 Mg Capsule 150 MG PO HS (Reported) Rivaroxaban (Xarelto) 1 Each Tab.ds.pk 1 EACH PO DAILY (Reported) Telmisartan/HCTZ 80-25 mg ([place]is HCT 80-25 mg) 1 Each Tablet 1 TABLET PO DAILY (Reported) Venlafaxine ER (Effexor XR) 150 Mg Capsule 150 MG PO DAILY (Reported) As needed Albuterol/Ipratropium (Combivent Respimat Inhal [place]) 120 Spr/4 Gm Inhaler 1 PUFF IH QID PRN PRN For Shortness of Breath (Reported) Cyclobenzaprine (Cyclobenzaprine) 5 Mg Tablet 5 MG PO TID PRN PRN Spasm ( Reported) Hydrocodone-Acetaminophen 5-325 mg (Hydrocodone-Acetaminophen 5-325 mg) 1 Each Tablet 1 TABLET PO Q4H PRN PRN For Pain (Reported) Additional med instructions Continue taking your medications as instructed Drink at least 4-5 glasses of water daily to keep from being dehydrated Followup Plan Disposition: Home Discharge Diet: Heart Healthy Discharge Activity: No restrictions Patient Instructions Please follow up with your PCP within 1 week to follow up on your Atrial fibrillation admission Follow-up Provider: Dipesh Navarro MD Follow-up with PCP in: 1 week Attending Statement The patient was seen and examined together with Resident/House-staff on 06/29/16 and I agree with the history, exam and plan as outlined in the note above. copies to: Dipesh Navarro MD, Hong D DO Jun 29, 2016 17:03 Forest Garnett Jun 29, 2016 18:11
--- NOTE | 2016-06-29 18:13 | NUR ---
Discharge Reviewed discharge paperwork and care notes with pt, waiver signed. Spoke with pt about Heart Healthy Diet and printed out Up to Date packet for them to take home. IV DCd intact, tele removed, all belongings with pt. VSS, no c/o pain, no s/sx of distress. Pt taken curbside in WC at 1825, daughter driving home.
[2016-10-01] MEDS ORDERED: PROP225T PO (15:51)
[2016-10-01] MEDS ORDERED: PRE20 PO (15:51)
[2016-10-01] MEDS ORDERED: CETI10CA PO (15:51)
[2016-10-01] MEDS ORDERED: ATOR20TA PO (15:51)
[2016-10-01] MEDS ORDERED: BENZ-12 PO (15:51)
[2016-10-01] MEDS ORDERED: HYDR5SYR PO (15:51)
[2016-10-01] MEDS ORDERED: METO50TA7 PO (15:51)
[2016-10-01] MEDS ORDERED: GLIP10TA10 PO (15:51)
== END 2016-06-29 18:47 | disposition home or self-care (01) ==
LOC: EDUNIT# 21:40 → EDBD 21:40 → SED 21:40 → MPC 06-27 01:35
PROVIDERS: ADMIT Specialist; ATTEND Specialist
DX: I48.0 Paroxysmal atrial fibrillation (principal); N17.9 Acute kidney failure, unspecified; R79.89 Other specified abnormal findings of blood chemistry; R07.89 Other chest pain; I10 Essential (primary) hypertension; D68.51 Activated protein C resistance; G47.33 Obstructive sleep apnea (adult) (pediatric); E11.9 Type 2 diabetes mellitus without complications; K21.9 Gastro-esophageal reflux disease without esophagitis; M54.9 Dorsalgia, unspecified; G89.29 Other chronic pain; Z23 Encounter for immunization; Z86.718 Personal history of other venous thrombosis and embolism; Z86.73 Personal history of transient ischemic attack (TIA), and cerebral infarction without residual deficits; Z79.02 Long term (current) use of antithrombotics/antiplatelets; Z79.899 Other long term (current) drug therapy
CPT/HCPCS: 36415; 71010; 78452; 80048; 80053; 80061; 81000; 83036; 83735; 84443; 84484; 85025; 87086; 87088; 90674; 93005; 93017; 94664; 94799; 96374; 96375; 97116; 97162; 99291; A9502; C8929; G0378; G8978; G8979; J0280; J1644; J1815; J2785; J7030; J7620; Q9957

== ENCOUNTER 2016-07-11 15:53 | Observation (INO) | payer MEDICARE, OTHER ==
[~2016-07-11] VITALS: Ht 167.6 cm; Wt 99.0 kg
[~2016-07-11 15:53] MED LIST: CALC-140 PO; CHOL200047 PO; CYCL5TAB PO; FERR159T2 PO; FLUT15.88 NS; GLPZ5T PO; HYDR-4003 PO; HYDR25TA4 PO; IPRA4AER IH; METF500T4 PO; PRAV10TA2 PO; PREG150C PO; PREG75CA PO; RIVA1TAB PO; TELM1TAB PO; VENL150C PO
[2016-07-11 15:57] VITALS: BP 150/81; PULSE 131; RESP 20; O2SAT 100
--- NOTE | 2016-07-11 16:08 | ED.REPORT ---
HPI-Chest Pain 40 and Over Date of Service Jul 11, 2016 ED Provider: Hiram Mack Leelee A 70 year old female with a history of hypertension, diabetes mellitus, sleep apnea (CPAP) and angina presents to the ED via EMS complaining of chest pain that began at 0300 this morning. The episode of chest pressure began while the patient was laying down after waking up from a nap. Patient was seen on 06/26 for similar symptoms and an EKG that revealed A-fib with RVR. Diltiazem and labetalol were given before she spontaneously converted without cardioversion. Today, she presents with "heavy" chest pressure, heart palpitations and moderate SOB. She states that this episode of pain feels identical to her previous visit in the ED. 20 years ago, the patient had an episode of A-fib during an angiogram that required cardioversion. Patient denies history of CAD or [place]. She denies fever, chills or nausea. Nursing Notes Stated Complaint: RAPID HEART RATE, POSS AFIB Chief Complaint: Chest Pain Nursing Notes Reviewed: Yes Allergies: Coded Allergies: Iodinated Contrast Media - Oral and (Verified Allergy, Mild, Hives, 11/22/14 ) PATIENT STATES CONTRAST ALLERGY YEARS AGO DURING IVP. PATIENT STATES WAS GIVEN BENADRYL AND HAS BEEN PRE TREATED PRIOR TO RECEIVING CONTRAST SINCE. LL Penicillins (Verified Allergy, Unknown, 06/26/16) codeine (Verified Allergy, Unknown, 06/26/16) Uncoded Allergies: NOVACAINE (Allergy, Unknown, 06/26/16) Scheduled Calcium Carbonate/Vitamin D3 (Calcium + Vitamin D Tablet) 1 Each Tablet 1 EACH PO DAILY Cholecalciferol (Vitamin D3) (Vitamin D3) 2,000 Unit Capsule 4,000 UNIT PO DAILY Ferrous Sulfate, Dried (Iron) 159 Mg Tablet.er Unknown Dose PO BID Fluticasone Propionate (Fluticasone Propionate) 50 Mcg/Actuation Jay.susp 15.8 ML NS DAILY Glipizide (Glipizide) 5 Mg Tablet 5 MG PO BID Hydrochlorothiazide (Hydrochlorothiazide) 25 Mg Tablet 15 MG PO DAILY Metformin (Metformin) 500 Mg Tablet 500 MG PO BID Pravastatin (Pravastatin) 10 Mg Tablet 10 MG PO HS Pregabalin (Lyrica) 75 Mg Capsule 75 MG PO DAILYWM Pregabalin (Lyrica) 150 Mg Capsule 150 MG PO HS Rivaroxaban (Xarelto) 1 Each Tab.ds.pk 1 EACH PO DAILY Telmisartan/HCTZ 80-25 mg (Micardis HCT 80-25 mg) 1 Each Tablet 1 TABLET PO DAILY Venlafaxine ER (Effexor XR) 150 Mg Capsule 150 MG PO DAILY Scheduled PRN Albuterol/Ipratropium (Combivent Respimat Inhal Jay) 120 Spr/4 Gm Inhaler 1 PUFF IH QID PRN PRN For Shortness of Breath Cyclobenzaprine (Cyclobenzaprine) 5 Mg Tablet 5 MG PO TID PRN PRN Spasm Hydrocodone-Acetaminophen 5-325 mg (Hydrocodone-Acetaminophen 5-325 mg) 1 Each Tablet 1 TABLET PO Q4H PRN PRN For Pain General Time Seen by MD: 16:05 Chief Complaint Chest pain Hx Obtained From: Patient Arrived By: Ambulance Sudden in Onset?: Yes Onset Occurred: 13 - 16 hours ago Symptom Duration: Since onset Location: : Chest left: Chest right Quality: Pressure Radiation: : Does not radiate Migration/Movement: Reports: None Severity: Current: Moderate Severity: Maximum: Moderate Associated with: Reports: Shortness of Breath, Denies: Fever, Nausea Pertinent Negative: Pt denies other symptoms Recent Healthcare: Recent doctor visit, Recent hospitalization Past Medical History Past Medical History Hypertension Angina Sleep apnea - CPAP Reports: Diabetes mellitus Past Surgical History endocardectomy. neck surgery. feet surgery. back surgery. Reports: Appendectomy, Cholecystectomy Smoking History Never Smoker Ambulatory Status Independent Review of Systems Constitutional: Denies: Chills, Fever Respiratory: Reports: Shortness of breath Cardiovascular: Reports: Chest pain, Palpitations GI: Denies: Abdominal pain, Nausea, Vomiting Complete sys rev & neg: except as marked. Physical Exam Initial Vital Signs Vital Signs (First) Date Time Temp Pulse Resp B/P Pulse Ox O2 Delivery O2 Flow Rate FiO2 07/11/16 15:57 36.2 131 20 150/81 100 Room Air 07/11/16 17:02 2 Initial VS: Reviewed General/Constitutional: Awake, Alert Distress / Hydration: Positive: Distress mild Respiratory / Chest: Atraumatic, Breath sounds NL, Breath sounds = bilat, No respiratory distress Cardiovascular: Heart sounds NL Heart Rate / Rhythm: Positive: Irreg irregular rhythm, Tachycardia Abdomen: Atraumatic, Soft, Non-tender Interpretation & Diagnostics Lab Results Interpretation Result Diagram: 07/11/16 1610 07/11/16 1610 Test 07/11/16 16:10 07/11/16 18:21 White Blood Count 12.4th/mm3 (3.8-10.1) Red Blood Count 4.43mil/mm3 (3.90-5.20) Hemoglobin 13.0g/dL (12.0-15.6) Hematocrit 39.4% (35.0-46.0) Mean Corpuscular Volume 88.9fL (81-100) Mean Corpuscular Hemoglobin 29.3pg (27.0-35.0) Mean Corpuscular Hemoglobin Concent 33.0% (32.0-37.0) Red Cell Distribution Width 13.8% (12.3-15.4) Platelet Count 339bil/L (150-400) Neutrophils (%) (Auto) 52.8% (40-74) Lymphocytes (%) (Auto) 37.3% (14-46) Monocytes (%) (Auto) 7.2% (4-12) Eosinophils (%) (Auto) 2.3% (0-5) Basophils (%) (Auto) 0.2% (0-3) Prothrombin Time 10.5sec (8.1-12.5) Prothromb Time International Ratio 0.98ratio Activated Partial Thromboplast Time 27.5sec (22.8-33.0) Sodium Level 139mEq/L (134-144) Potassium Level 3.6mEq/L (3.5-5.2) Chloride Level 95mEq/L (97-108) Carbon Dioxide Level 21mmol/L (18-29) Blood Urea Nitrogen 32mg/dL (8-27) Creatinine 1.14mg/dL (0.57-1.00) Estimat Glomerular Filtration Rate 67mL/min (>59) Glucose Level 131mg/dL (60-99) Calcium Level 10.3mg/dL (8.5-10.1) Magnesium Level 1.9mg/dL (1.6-2.6) Total Bilirubin 0.2mg/dL (0.0-1.2) Aspartate Amino Transf (AST/SGOT) 17U/L (0-50) Alanine Aminotransferase (ALT/SGPT) 18U/L (0-32) Alkaline Phosphatase 118U/L (25-165) Troponin T < 0.010ug/L (0.0-0.011) Pro-B-Type Natriuretic Peptide 182.5pg/mL (0-301) Total Protein 7.7g/dL (6.4-8.4) Albumin 4.4g/dL (3.4-5.0) Hold Sidhu Top Tube Received (Received) Hold Urine Received (Received) ECG Interpretation ECG Interpretation: Atrial fibrillation with RVR Rate 136 Repol abnormality suggestive of ischemia Prolonged QT interval Time: 16:39 Interpreted by: ED physician Normal ECG Interpretation: No change from prior ECGs (06/27) ECG Interpretation: Sinus Rhythm Rate 80 bpm No ischemic changes Time: 16:54 Interpreted by: ED physician X-Ray Chest Interpretation Chest Xray Interpretation: IMPRESSION: No acute process. Cardiomegaly. Dictated by: Anh Thomas M.D. on 07/11/2016 at 16:47 Interpretation / Wet Read by: Interpret - Radiologist Procedures Electrical Cardioversion Time: 16:50 Procedure Performed by: ED physician Indication: Atrial fibrillation Consent / Setup / Site Prep: Informed consent provided, Consent from patient , Time-out performed, Placed on oxygen, Placed on pulse oximeter, Place on streetcar motorman, Hand hygiene observed, Stand sterile technique Procedural Sedation/Analgesia: Sedation: Propofol Joules: 150 Procedure Successful: Yes Post-Procedure Rhythm: Normal sinus rhythm Post-Procedure / Complications: No complications, Condition improved, Tolerated procedure well, Patient stable Proced Mod Sedation/Analgesia Time: 16:50 Procedure Performed by: ED physician Sedation Time: 31 - 45 min Consent / Setup: Informed consent provided, Consent from patient, Time-out performed, Hand hygiene observed, Stand sterile technique, Position supine Indication: Other (Cardioversion ) Preparation: thickener operator applied, Pulse oximeter applied, Constant attendance, IV access established, Eval last meal time, Supplemental oxygen, Procedure explained, Suction available, End tidal CO2 mon applied VS Prior to Procedure: All vital signs normal Airway Exam: Normal facial anatomy, Normal neck anatomy, Normal anatomy CVS/Resp Exam: Normal breath sounds Sedation: Sedation: Propofol ASA Classification: 1 normal healthy patient Response During Procedure: Handled secretions adeq, Maintained airway well, Oxygenation stable, Sedation appropriate, Vital signs stable Complications During/After: None Mental Status After Procedure: Alert Post-Procedure: Vital signs normal Attestation: I performed procedure, I performed sedation Re-Eval/Medical Decision Med Decision/Clinical Course 70-year-old female with a remote history of atrial fibrillation during an angiogram 20 years ago which resolved with cardioversion presents in atrial fib with rapid ventricular response. She complains of shortness of breath and chest pain associated with palpitations. I saw her 2 weeks ago in the emergency department for the same and she converted to normal sinus rhythm after diltiazem and Lopressor. She had elevated troponin at that time due to demand ischemia. Patient was hospitalized for observation and was discharged on the same medications she came in on. In April she had been taken off her carvedilol because she was undergoing allergy shots and Coreg makes epinephrine less efficacious. She was only on the Coreg for blood pressure control. Today she awoke from a nap at 3 PM with her current symptoms. On her initial evaluation there was some signs of ischemia on her EKG and after her symptoms progressively worsened with increasing chest pain, shortness of breath, diaphoresis and the IV diltiazem was given and found to be ineffective, I elected to cardiovert her. She has been on xarelto faithfully for quite some time. Patient notes that her symptoms are worse today than they were 2 weeks ago and she is agreeable to cardioversion. She was given propofol 100 mg for conscious sedation, please see attached documentation. She tolerated the cardioversion very well and her rhythm was restored to sinus with one shock of 150 J. I discussed her care with Dr. Marcelo, our surveying crew rodman who recommends that we begin a rhythm control agent. Recent echocardiogram and chemical stress test were reviewed and were normal. She is a good candidate for flecainide and diltiazem as she does not have structural heart disease. Diltiazem CD 120 mg was given this evening. She was also given her dinner dose of xarelto [address] Marcelo recommends she again flecainide 50 mg twice a day. She has recommended she be admitted for medication titration and patient is agreeable. Patient will be admitted to hospitalist service. Time of Eval: 16:33 Patient Status: Condition improved Re-Evaluation/Progress Note: Patient is rechecked. Chest pain is becoming increasingly worse after Diltiazem. She is informed of plan to cardiovert. Time of Eval: 16:50 Re-Evaluation/Progress Note: Sedation and cardioversion are performed. Patient tolerates both procedures well. Time of Eval: 16:55 Patient Status: Condition improved, Pain improved Re-Evaluation/Progress Note: Patient reports that she is feeling much better and the chest pressure has improved. Family is imformed of the treatment plan. Time of Eval: 18:54 Patient Status: Condition improved Re-Evaluation/Progress Note: Patient is rechecked and reports that she is feeling much better but slightly fatigued. She is informed of the plan to admit and meet with cardiology tomorrow. All questions are addressed. She agrees with the treatment plan. Consultation #1: Referral / Consult Name: Adalgisa Marcelo MD Consulted With: Cardiology Call Returned at: 18:01 Senior Project Coordinator: Will see patient, Agrees with eval, Agrees with plan Note: Recommends beginning Diltiazem 120 and start fluconide in morning Consultation #2: Referral / Consult Name: Christopher Brenner MD Consulted With: Hospitalist Counseled Regarding: Diagnosis, Lab results, Need for admission Discharge & Departure Primary Impression: Atrial fibrillation with rapid ventricular response Additional Impressions: DERICK (acute kidney injury) Chest pain Chest pain type: unspecified Qualified Code: R07.9 - Chest pain, unspecified Shortness of breath Demand ischemia Disposition: ADMITTED TO HOSPITAL Discharge Condition All VS Reviewed: Yes Condition: Stable Referrals: Dipesh Navarro MD (PCP) Crit Care Except Billable Proc Time Spent: 30-74 minutes Services Performed: Patient management by me, Time spent at bedside, Reviewing test results, Reviewing imaging, Discussing patient care, Documentation in record, Time with fam/surrogate Scribe Attestation Portions of this note were transcribed by Peterson Roca. I, Dr. Mack personally performed the history, physical exam and medical decision-making; I reviewed and confirmed the accuracy of the information in the transcribed note. Signed by: Adarsh Pierson, 07/11/16 1900. copies to: Dipesh Navarro MD; Adalgisa Marcelo MD, Gary R DO Jul 11, 2016 16:08 PETERSON ROCA Jul 11, 2016 16:18
[2016-07-11] MEDS ORDERED: 0.9% Sodium Chloride 1,000 ML IV ONE (16:18)
[2016-07-11] MEDS ORDERED: Diltiazem 5 mg/mL 5 mL Inj IVPUSH ONE (16:20)
[2016-07-11 16:36] LABS: BASOPHILS % (AUTO) 0.2 % (0-3); EOSINOPHILS % (AUTO) 2.3 % (0-5); MONOCYTES % (AUTO) 7.2 % (4-12); Mean Corpuscular Hemoglobin 29.3 pg (27.0-35.0); Mean Corpuscular Volume 88.9 fL (81-100); NEUTROPHILS % (AUTO) 52.8 % (40-74); Platelet Count 339 bil/L (150-400)
[2016-07-11] MEDS ORDERED: Propofol 10 mg/mL 20 mL Inj ONE (16:38)
--- NOTE | 2016-07-11 16:49 | DRSVH ---
PROCEDURE: X-RAY CHEST ONE VIEW, PORTABLE ([id number]) INDICATIONS: sob, cp TECHNIQUE: One view of the chest was acquired. COMPARISON: [facility], CR, XR CHEST 1VW (PORTABLE), 06/26/2016, 21:52. FINDINGS: Surgical changes and devices: None. Lungs and pleura: No pleural effusions or pneumothorax. Lungs are clear. Mediastinum: Mediastinal contours appear normal. Heart size is enlarged. Bones and chest wall: No suspicious bony lesions. Overlying soft tissues appear unremarkable. IMPRESSION: No acute process. Cardiomegaly. Dictated by: Anh Thomas M.D. on 07/11/2016 at 16:47 Approved by: Anh Thomas M.D. on 07/11/2016 at 16:47
[2016-07-11 16:55] LABS: INR 0.98 ratio
[2016-07-11 17:02] VITALS: BP 131/78; RESP 9; O2SAT 98
[2016-07-11 17:04] LABS: TROPONIN T < 0.010 ug/L (0.0-0.011)
[2016-07-11 17:14] LABS: Magnesium 1.9 mg/dL (1.6-2.6)
[2016-07-11] MEDS ORDERED: Propofol 10 mg/mL 20 mL Inj IVPUSH ONE (17:40)
[2016-07-11] MEDS ORDERED: Diltiazem CD 120 mg ER24 Capsule PO ONE (18:10)
[2016-07-11 19:05] VITALS: BP 157/65; PULSE 91; RESP 20; O2SAT 93
[2016-07-11] MEDS ORDERED: Ondansetron 2 mg/mL 2 mL Inj IVPUSH PRN (19:55)
[2016-07-11] MEDS ORDERED: Polyethylene Glycol (PEG) 17 Gm Powder PO PRN (19:55)
[2016-07-11] MEDS ORDERED: Alum-Mag Hydrox-Simeth 30 mL Suspension PO PRN (19:55)
--- NOTE | 2016-07-11 20:14 | PCM.HPMED ---
Subjective Date of Service Jul 11, 2016 Primary Provider: Admitting Physician: Christopher Brenner MD Primary Care Physician: Dipesh Navarro MD Attending Physician: Christopher Brenner MD Admit Status: From the Emergency Department, [facility] Telemetry Chief Complaint: Chest pain, racing heart rate History of Present Illness: Ms. Asuncion Meeks is a pleasant 70 year old female with a history of diabetes, Factor V Leiden with recurrent DVTs, on Xarelto, history of TIA, who presents to the ED via EMS complaining of chest pain onset 1500 today after she woke up from a nap. Patient reports "stabbing" chest pain that became "squeezing " sensation with deep breath on the right chest. She checked her BP at home and it was normal but her HR was in the 140s. She denies any radiation to jaws or between her shoulder blades, which she had last time she went to the hospital. Patient was admitted to the hospital on 06/26/16 for similar symptoms. Her EKG then revealed A-fib with RVR. Diltiazem and labetalol were given before she spontaneously converted without cardioversion. Stress test and Echo at that time were both normal. Today, she admits to worse chest pain than last time. Associate symptoms include palpitations, SOB, dizziness, and "strangulating" sensation. She denies any diaphoresis, abdominal pain, headache, nausea, vomiting, fever, or chills. Patient had an episode of A-fib during an angiogram that required cardioversion 20 years ago, but no issue since then. She has never been diagnosed with CAD and denies history of [place]. She states that she was on Carvedilol for many years, but that has to stop 6 months ago due to her allergy shot. Patient has severe seasonal allergy that requires regular allergy shot and was told that she should not have beta vero. In the ED, HR was 131, BP 150/81, WBC 12.4, BUN 32, Cr 1.14, glucose 131. Troponin was negative x1. Pro-BNP 182.5. CXR negative for acute cardiopulmonary process, but cardiomegaly noted. EKG showed afib with RVR. She was given IV boluses of diltiazem without success, and because of her increasing chest pain, she was cardioverted in the ED. Her rhythm remains sinus rhythm and patient reports significant improvement of her symptoms. Dr. Marcelo was contacted and recommended beginning Diltiazem 120mg daily and will start Fluconide in the morning. Review of Systems: Comprehensive review of systems conducted and was negative except for the pertinent positives listed above. Allergies Coded Allergies: Iodinated Contrast Media - Oral and (Verified Allergy, Mild, Hives, 11/22/14 ) PATIENT STATES CONTRAST ALLERGY YEARS AGO DURING IVP. PATIENT STATES WAS GIVEN BENADRYL AND HAS BEEN PRE TREATED PRIOR TO RECEIVING CONTRAST SINCE. LL Penicillins (Verified Allergy, Unknown, 06/26/16) codeine (Verified Allergy, Unknown, 06/26/16) Uncoded Allergies: NOVACAINE (Allergy, Unknown, 06/26/16) Home Medications Scheduled Calcium Carbonate/Vitamin D3 (Calcium + Vitamin D Tablet) 1 Each Tablet 1 EACH PO DAILY Cholecalciferol (Vitamin D3) (Vitamin D3) 2,000 Unit Capsule 4,000 UNIT PO DAILY Ferrous Sulfate, Dried (Iron) 159 Mg Tablet.er Unknown Dose PO BID Fluticasone Propionate (Fluticasone Propionate) 50 Mcg/Actuation [place].susp 15.8 ML NS DAILY Glipizide (Glipizide) 5 Mg Tablet 5 MG PO BID Hydrochlorothiazide (Hydrochlorothiazide) 25 Mg Tablet 15 MG PO DAILY Metformin (Metformin) 500 Mg Tablet 500 MG PO BID Pravastatin (Pravastatin) 10 Mg Tablet 10 MG PO HS Pregabalin (Lyrica) 75 Mg Capsule 75 MG PO DAILYWM Pregabalin (Lyrica) 150 Mg Capsule 150 MG PO HS Rivaroxaban (Xarelto) 1 Each Tab.ds.pk 1 EACH PO DAILY Telmisartan/HCTZ 80-25 mg (Micardis HCT 80-25 mg) 1 Each Tablet 1 TABLET PO DAILY Venlafaxine ER (Effexor XR) 150 Mg Capsule 150 MG PO DAILY Scheduled PRN Albuterol/Ipratropium (Combivent Respimat Inhal [place]) 120 Spr/4 Gm Inhaler 1 PUFF IH QID PRN PRN For Shortness of Breath Cyclobenzaprine (Cyclobenzaprine) 5 Mg Tablet 5 MG PO TID PRN PRN Spasm Hydrocodone-Acetaminophen 5-325 mg (Hydrocodone-Acetaminophen 5-325 mg) 1 Each Tablet 1 TABLET PO Q4H PRN PRN For Pain PMH Factor V Leiden Recurrent DVTs Hypertension Obstructive sleep apnea Depression History of TIA GERD Diabetes mellitus Surgical History Endocardectomy. Neck surgery. Feet surgery. Back surgery. Appendectomy Cholecystectomy Family History Maternal grandmother: of CO at 67 Both paternal grandparents had [place]. Both parents have valvular disease and mother had a stroke Aunt: Stroke Social History Hx Alcohol Use: No Hx Substance Use: No Smoking Status: Never Smoker Living Arrangement: with Family Additional Information Lives at home with . Independent ambulatory status with use of a walker occasionally. Exam Vital Signs Vital Sign - Last Date Time Temp Pulse Resp B/P Pulse Ox O2 Delivery O2 Flow Rate FiO2 07/11/16 19:05 91 20 157/65 93 Room Air 07/11/16 17:02 36.7 2 Exam General: Alert, Oriented X3, Cooperative, No acute distress Head: Normocephalic, atraumatic. External ears normal. Eyes: PERRLA, EOMI. Anicteric sclerae. Mouth: Mouth normal, Mucous membranes moist/pink Neck: Neck supple with full range of motion. No JVD noted. Chest& Lungs: Clear to auscultation bilaterally with no crackles, wheezes, or rhonchi. Cardiovascular: Regular rate/rhythm, Normal S1, Normal S2, No murmurs/rubs/ gallops Abdomen: Non-tender, Non-distended, No masses, Normoactive bowel tones, Soft Musculoskeletal: Normal range of motion Extremities: No edema, cyanosis, or clubbing. Neurological: Grossly neurologically intact. Normal speech Lab and Diagnostics Result Diagram: 07/11/16 1610 07/11/16 1610 X-Rays, CTs and MRIs PROCEDURE: X-RAY CHEST ONE VIEW, PORTABLE IMPRESSION: No acute process. Cardiomegaly. Dictated by: Anh Thomas M.D. on 07/11/2016 at 16:47 Approved by: Anh Thomas M.D. on 07/11/2016 at 16:47 12-lead ECG Atrial fibrillation with RVR, rate of 136. Prolonged QT interval (QTc 503). No change from prior EKG on 06/27/16. Cardiac Echo Impressions Echo Interpretation Summary by Dr. Fransico Baker on 06/27/16 The patient was in normal sinus rhythm during the exam. The left ventricular cavity is small. The ejection fraction is estimated to be 70-75%. There are no focal wall motion abnormalities. Assessment of diastolic parameters indicates normal left ventricular diastolic function and normal filling pressures. The right ventricle grossly appears normal in size with probable normal systolic function. There is no significant valvular heart disease. The echocardiogram is within normal limits. Assessment & Plan 70 year old female with a history of diabetes, Factor V Leiden with recurrent DVTs, on Xarelto, history of TIA, who presents to the ED via EMS complaining of chest pain. Admitted for afib with RVR. 1. Atrial fibrillation with rapid ventricular rate, acute. Present on admission. Active. - Pt presented with afib in 130s that required cardioversion to sinus rhythm. - She was given Diltiazem 25mg IV push and an additional of Diltiazem 120mg PO in the ED per cardiology recommendation. - Will start Flecainide 50mg Q12H in the morning. - Dr. Marcelo was consulted in the ED. She will follow up with the patient in the morning. - Monitor on telemetry - Continue home Xarelto - Last Echo on 06/27/16 was normal. No sign of fluid overload on exam. - Normal TSH 1.52 on 06/27/16 2. Acute kidney injury. Present on admission. - Pt presents with mild DERICK (Cr 1.14) after afib with RVR, likely due to poor perfusion. Baseline Cr around 1.0. - NS @ 75 ml/hr and encourage PO hydration. - Avoid nephrotoxic drugs. - CMP in AM 3. Diabetes mellitus type 2 - BG 131 on admission. A1c 7.2 on 06/27. - Humalog medium dose correctional scale - Hold home metformin and glipizide 4. Factor V Leiden with recurrent DVTs - Patient on Xarelto at home; will continue 5. Hypertension, chronic, stable. - Continue home telmisartan and HCTZ 6. Hyperlipidemia, chronic, stable. - Lipid panel on 06/27 showed elevated Triglycerides (383), but the rest was normal. - Continue home pravastatin 7. Depression, chronic, presume stable. - Continue home Effexor 8. Chronic back pain, stable. - Continue home Lyrica, Flexeril, [place]. Patient requests to have Flexeril around the clock for her pain. 9. Obstructive sleep apnea, chronic, stable. - Family will bring in home CPAP. - Bowel regimen as needed - Antiemetic as needed Patient is admitted under observation status with expected length of stay less than 2 midnights due to severity of presenting symptoms, risk of adverse event, and complexity of treatment plan. Pain Evaluation: Adequate Pain Control GI Prophylaxis: H2 vero VTE Prophylaxis: Other (Xarelto) Resuscitation Status: CPR: Attempt Resuscitation Attending Statement The patient was seen and examined together with Dr. Arellano on 07/11 and I agree with the history, exam and plan as outlined in the note above. copies to: Dipesh Navarro MD, Ngochanh H DO Jul 11, 2016 20:14 Christopher Brenner MD Jul 11, 2016 22:26
[2016-07-11 20:45] VITALS: PULSE 72
[2016-07-11 20:49] LABS: APPEARANCE,URINE CLEAR (CLEAR,HAZY); COLOR,URINE YELLOW (YELLOW); OCCULT BLOOD,URINE TRACE (NEGATIVE); UROBILINOGEN,URINE NORMAL (NORMAL)
[2016-07-11 20:55] VITALS: BP 133/78; PULSE 70; RESP 19; O2SAT 98
[2016-07-11] MEDS ORDERED: Glucose 40% Oral Gel 15 Gm Tube PO PRN (21:00)
[2016-07-11] MEDS ORDERED: 0.9% Sodium Chloride 1,000 ML IV SCH (21:05)
[2016-07-11] MEDS: Insulin LISPRO 300 Unit/3 mL Inj SUBQ SCH (22:00)
[2016-07-11] MEDS ORDERED: METF500T7 PO (22:25)
[2016-07-12] VITALS (10 sets, daily range): BP systolic 125–169; BP diastolic 60–76; PULSE 60–68; RESP 20–21; O2SAT 96–99
[2016-07-12] MEDS: Venlafaxine XR 75 mg ER24 Capsule PO SCH ×2 (00:11→20:35)
[2016-07-12] MEDS: HYDROcodone-APAP 5-325 mg Tablet PO PRN ×2 (01:44→22:35)
[2016-07-12 05:42] LABS: BASOPHILS % (AUTO) 0.3 % (0-3); EOSINOPHILS % (AUTO) 3.5 % (0-5); MONOCYTES % (AUTO) 7.9 % (4-12); Mean Corpuscular Hemoglobin 28.6 pg (27.0-35.0); Mean Corpuscular Volume 91.4 fL (81-100); NEUTROPHILS % (AUTO) 44.5 % (40-74); Platelet Count 278 bil/L (150-400)
--- NOTE | 2016-07-12 06:44 | NUR ---
Noc/Admit Admitted pt from ED to [facility] room 3031. Pt is alert and oriented. Denies chest pain, sob, n/v or abdominal discomfort. Telemetry monitoring reports no abnormal arrhythmia. Hourly rounding done, pt has slept most of the night.
[2016-07-12] MEDS: Insulin LISPRO 300 Unit/3 mL Inj SUBQ SCH ×4 (08:00→21:00)
[2016-07-12] MEDS ORDERED: RIVAROXABAN PO SCH (08:30)
[2016-07-12] MEDS: Diltiazem CD 120 mg ER24 Capsule PO SCH (09:10)
[2016-07-12] MEDS: Fluticasone 0.05% 15 Spray/2 Gm 16 Gm Nasal Spray NASAL SCH (09:12)
[2016-07-12] MEDS ORDERED: ALBU8.5H2 INHALATION (10:03)
[2016-07-12] MEDS ORDERED: ACET-171 PO (10:08)
--- NOTE | 2016-07-12 11:14 | NUR ---
Ambulation/Dizziness Pt uses call light for SBA to BR for voiding. Pt steady and strong on feet. No noted deficits/weakness. Post void, pt reported feeling lightheaded and dizzy. 1P Assist back into bed. Pt still strong and steady. VS at baseline: BP 150/76, HR 61 Commended pt for using call light and instructed to keep using for ambulation and any change of condition. Board updated and INTER COM INSTALLER informed to monitor.
--- NOTE | 2016-07-12 15:00 | NUR ---
Social Work-initial assessment/ readiness for discharge: Data:See initial assessment. Pt is a 70 y/o female who was admitted on 07/11/16 for AFIB with RVR per H&P. Pt's insurance is [employer] and PCP is Dipesh wolfe MD. EMR Reviewed. YELITZA met with pt and friend Makayla at bedside, SW role explained. Pt is alert and oriented x3. Pt resides at home with her where she remains independent with ADLs. Pt does not use any DME and drives. Pt has no HH or SNF history. Pt has no lobsterman care or VA benefits. SW discussed DPOA/advanced directive, pt confirms she has received the paperwork, but has not completed this. SW encouraged pt to bring a copy into the hospital. Per RN notes, pt has been up independent in her room. Pt states her family will provide transport home. SW provided phone number and plan on white board in room. No anticipated discharge needs. SW will continue to follow if needs arise. Assessment:Pt who is independent at baseline. Plan:Pt to discharge home when medically stable via POV. No anticipated discharge needs. SW will continue to follow if needs arise. ROB Jimenez Addendum: 07/12/16 at 1504 by HUGO BABIN Amended: Links added.
--- NOTE | 2016-07-12 18:01 | PCM.PNMED ---
Subjective Date of Service Jul 12, 2016 Subjective denies any new issues/complaints. no CP currently Exam Vital Signs Vital Sign - Last Date Time Temp Pulse Resp B/P Pulse Ox O2 Delivery O2 Flow Rate FiO2 07/12/16 14:01 36.6 64 20 142/72 99 Room Air 07/11/16 17:02 2 Intake and Output 07/11/16 07/11/16 07/12/16 Cumulative From/Thru 15:00 23:00 07:00 07/11/16 15:57 - 07/12/16 06:36 Intake Total 1000 ml 561 ml 1561 ml Balance 1000 ml 561 ml 1561 ml IV Total 1000 ml 561 ml 1561 ml General: Alert, Cooperative, No Acute Distress Head: Normal Eyes: Scleral Anicteric Mouth: Mucous Membr Moist/[place] Neck: Supple Chest & Lungs: Chest Wall Normal, Clear to auscultation & percussion Cardiovascular: Regular Rate/Rhythm Pulses: NL carotid, radial, femoral, DP, PT Abdomen: Non-tender, Non-distended, Normoactive bowel tones, Soft Extremities: No cyanosis/clubbing/edma bilat Neurological: Grossly Neurologically Intact, Normal Speech IVs and Medications Medications Reviewed: Medications were reviewed in detail Lab and Diagnostics Result Diagram: 07/12/16 0520 07/12/16 0520 X-Rays, CTs and MRIs PROCEDURE: X-RAY CHEST ONE VIEW, PORTABLE IMPRESSION: No acute process. Cardiomegaly. Dictated by: Anh Thomas M.D. on 07/11/2016 at 16:47 Approved by: Anh Thomas M.D. on 07/11/2016 at 16:47 12-lead ECG Atrial fibrillation with RVR, rate of 136. Prolonged QT interval (QTc 503). No change from prior EKG on 06/27/16. Cardiac Echo Impressions Echo Interpretation Summary by Dr. Fransico Baker on 06/27/16 The patient was in normal sinus rhythm during the exam. The left ventricular cavity is small. The ejection fraction is estimated to be 70-75%. There are no focal wall motion abnormalities. Assessment of diastolic parameters indicates normal left ventricular diastolic function and normal filling pressures. The right ventricle grossly appears normal in size with probable normal systolic function. There is no significant valvular heart disease. The echocardiogram is within normal limits. Assessment & Plan 70 year old female with a history of diabetes, Factor V Leiden with recurrent DVTs, on Xarelto, history of TIA, who presents to the ED via EMS complaining of chest pain. Admitted for afib with RVR. # Atrial fibrillation with rapid ventricular rate, acute. Present on admission. resolved. - Pt presented with afib in 130s that required cardioversion to sinus rhythm. - She was given Diltiazem 25mg IV push and an additional of Diltiazem 120mg PO in the ED per cardiology recommendation. - c/w Flecainide per cardiology recs - Continue home Xarelto - f/u w/ official cardiology consult recs # Acute kidney injury. Present on admission. - Pt presents with mild DERICK (Cr 1.14) after afib with RVR, likely due to poor perfusion. Baseline Cr around 1.0. - Resolved with IVF - Avoid nephrotoxic drugs. - BMP in AM # Diabetes mellitus type 2 - BG 131 on admission. A1c 7.2 on 06/27. - Humalog medium dose correctional scale - Hold home metformin and glipizide # Factor V Leiden with recurrent DVTs - Patient on Xarelto at home; will continue # Hypertension, chronic, stable. - Continue current meds # Hyperlipidemia, chronic, stable. - Lipid panel on 06/27 showed elevated Triglycerides (383), but the rest was normal. - Continue home pravastatin # Depression, chronic, presume stable. - Continue home Effexor # Chronic back pain, stable. - Continue home Lyrica, Flexeril, [place]. # Obstructive sleep apnea, chronic, stable. - Family will bring in home CPAP. Dispo: 1-3 days GI Prophylaxis: H2 vero VTE Prophylaxis: Other (Xarelto) VTE Mechanical Devices: Intermittant Pneumatic CD Resuscitation Status: CPR: Attempt Resuscitation Time spent 35 min [place]ett Jul 12, 2016 18:01
--- NOTE | 2016-07-12 18:16 | CONS ---
[address] [address] CONSULTATION REPORT PATIENT: MARCOS BRANDT : 1945 MR#: [id number] ADMIT: 07/11/2016 JOB ID: [id number] DATE OF SERVICE: 07/12/2016 SURGEON: Adalgisa Marcelo MD. CHIEF COMPLAINT: Chest pain and AFib with RVR. HISTORY OF PRESENT ILLNESS: The patient is a delightful, 70-year-old woman who had AFib diagnosed 20 years ago. Status post DC cardioversion. She was stable for about 20 years until June 27, 2016, when she had AFib with RVR. She was treated with diltiazem and converted chemically to normal sinus rhythm. She has been of note on Xarelto for history of venous thromboembolism. Unfortunately she was not started on an antiarrhythmic medication and unfortunately she bounced back to the hospital on July 11, 2016, with another episode of AFib with RVR. She was reporting chest pressure with associated palpitations. The feeling was heavy. The feeling was associated with moderate shortness of breath. It was identical to her prior presentation, June 27, 2016. She was treated with DC cardioversion. Normal sinus rhythm was restored. PAST MEDICAL HISTORY: 1. Obstructive sleep apnea. 2. Diabetes. 3. Hypertension. 4. She has Factor V Leiden but it unknown whether she is a homozygote or heterozygote. PAST SURGICAL HISTORY: Neck surgery, foot surgery, back surgery, appendectomy, and cholecystectomy. FAMILY HISTORY: Grandmother of [place] at 67. Grandfather with [place]. Mother, stroke. Aunts with stroke. SOCIAL HISTORY: No tobacco or drug use. No alcohol use. REVIEW OF SYSTEMS: Demonstrated no bright red blood per rectum. No hematuria. Otherwise 10-point review of systems is negative. HOME MEDICATIONS: 1. Pravastatin 20 mg daily. 2. Micardis 80/25 (telmisartan/HCTZ) one tablet daily. 3. Xarelto 20 mg daily. 4. Glipizide 5 mg twice a day. 5. Metformin 500 mg twice a day. 6. Pregabalin. 7. Effexor 150 mg daily. 8. Various supplements and herbs including calcium, vitamin D3, and iron. MEDICATIONS IN THE HOSPITAL: 1. Flecainide 50 mg twice a day. 2. Losartan 100 mg daily because we do not have Micardis available. 3. Lispro sliding scale insulin. 4. Pravastatin 10 mg daily. 5. Effexor 150 mg daily. 6. Pregabalin 150 mg daily. 7. Hydrochlorothiazide 25 mg daily. 8. Xarelto 20 mg daily. 9. Diltiazem 120 mg daily. PHYSICAL EXAMINATION: Vital signs: Temperature 36.6, blood pressure 125/69, up to 169/74, pulse 61 up to 68 beats per minute, satting 99% on room air. Very pleasant woman. No apparent distress. Eyes: No scleral icterus. Heart: Normal S1, S2. No murmurs, rubs, or gallops. Neck: Supple. No lymphadenopathy. No carotid bruits. Lungs are clear to auscultation. Abdomen: Soft, positive bowel sounds. No hepatosplenomegaly. Extremities: Warm, well perfused. No clubbing, cyanosis, or edema. Skin: No rashes. No lesions. LABORATORY: Have been reviewed. Her electrolytes are normal. Potassium at this time is 3.8, but of note, it was 3.6 on admission. Creatinine is 1.14. Calcium is 8.8. Troponin T negative x2. TSH was most recently checked June 27. Was normal at 1.5. Most recent lipid panel, as of June 27, 2016, showed total cholesterol 199, triglycerides 383, HDL 61, LDL 71. Hematocrit is a little bit abnormal. It is 44% today. Urinalysis shows trace occult blood, no leukocyte esterase and negative nitrite. IMAGING DATA: Shows chest x-ray which is normal. Prior workup demonstrated reassuring echocardiogram performed June 27, 2016, with no evidence of focal wall motion abnormalities. EF 75%. There was no significant valvular abnormality and mild left atrial enlargement was present. Pharmacologic stress test with myocardial perfusion imaging showed no evidence of ischemia or prior infarct. ASSESSMENT AND PLAN: This is a 70-year-old woman with multiple coronary artery disease risk factors, but no evidence of active coronary artery disease. She has hypertension, hyperlipidemia, and diabetes and excess weight. She comes in with AFib with RVR. This is her third episode. This is the 2nd time she required cardioversion. I recommend initiation of oral antiarrhythmic medication including flecainide 50 mg twice a day and diltiazem CD 120 mg daily. Patient is not a good candidate for beta-vero because she is undergoing allergy shots and beta vero is relatively contraindicated because it makes epinephrine resuscitation in case of anaphylactic reaction much less likely to be successful. This cannot be safely used in this patient. She will continue Xarelto which she is on anyway regardless for her DVTs. She will follow up with me in clinic as an outpatient. I recommended about a month. Thank you very much for the opportunity to evaluate her.
--- NOTE | 2016-07-12 18:28 | NUR ---
Case Management: GREGORIO explained to patient at 1805, all questions answered. Signed original placed in chart, pt given a copy. Pt refused the Medicare part D info. Deyanira Arellano RN
[2016-07-12] MEDS: guaiFENesin 20 mg/mL 10 mL Syrup PO PRN (21:00)
[2016-07-12] MEDS ORDERED: PRAVASTATIN 10 MG PO SCH (21:00)
[2016-07-12] MEDS: Albuterol 1.25 mg/3 mL Inhalation Solution NEB PRN (22:51)
[2016-07-13] VITALS (10 sets, daily range): BP systolic 129–157; BP diastolic 63–89; PULSE 58–72; RESP 18–22; O2SAT 95–98
[2016-07-13] MEDS: guaiFENesin 20 mg/mL 10 mL Syrup PO PRN ×3 (04:45→21:21)
--- NOTE | 2016-07-13 06:35 | NUR ---
Cough Pt having SOB due to cough. Administered Guiafenessin as ordered. Breathing Tx by RT PRN provided. Denies chest pain, n/v or abd discomfort. Correctional insulin administered as per sliding scale. VSS, and pt has been afebrile overnight. Intentional hourly rounding done and pt has slept most of the night.
[2016-07-13 07:22] LABS: Mean Corpuscular Hemoglobin 28.9 pg (27.0-35.0)
[2016-07-13] MEDS: Insulin LISPRO 300 Unit/3 mL Inj SUBQ SCH ×4 (08:34→22:00)
[2016-07-13] MEDS: Fluticasone 0.05% 15 Spray/2 Gm 16 Gm Nasal Spray NASAL SCH (08:34)
[2016-07-13] MEDS: Diltiazem CD 120 mg ER24 Capsule PO SCH (08:35)
[2016-07-13] MEDS: Albuterol 1.25 mg/3 mL Inhalation Solution NEB PRN ×2 (12:59→20:51)
--- NOTE | 2016-07-13 17:42 | PCM.PNMED ---
Subjective Date of Service Jul 13, 2016 Subjective complains of new onset cough and SOB. Exam Vital Signs Vital Sign - Last Date Time Temp Pulse Resp B/P Pulse Ox O2 Delivery O2 Flow Rate FiO2 07/13/16 17:20 36.7 64 20 157/78 98 Room Air 07/11/16 17:02 2 Intake and Output 07/12/16 07/12/16 07/13/16 Cumulative From/Thru 15:00 23:00 07:00 07/11/16 15:57 - 07/13/16 05:06 Intake Total 100 ml 1270 ml 2931 ml Output Total 450 ml 1300 ml 1750 ml Balance -350 ml -30 ml 1181 ml Intake Oral 100 ml 1270 ml 1370 ml IV Total 1561 ml Output Urine Total 450 ml 1300 ml 1750 ml # Bowel Movements 0 1 1 Exam General: Alert, Cooperative, No Acute Distress Head: Normal Eyes: Scleral Anicteric Mouth: Mucous Membr Moist/[place] Neck: Supple Chest & Lungs: Chest Wall Normal, Clear to auscultation bilat Cardiovascular: Regular Rate/Rhythm Pulses: NL carotid, radial, femoral, DP, PT Abdomen: Non-tender, Non-distended, Normoactive bowel tones, Soft Extremities: No cyanosis/clubbing/edema bilat Neurological: Grossly Neurologically Intact, Normal Speech IVs and Medications Medications Reviewed: Medications were reviewed in detail Lab and Diagnostics Result Diagram: 07/13/16 0549 07/13/16 0549 X-Rays, CTs and MRIs PROCEDURE: X-RAY CHEST ONE VIEW, PORTABLE IMPRESSION: No acute process. Cardiomegaly. Dictated by: Anh Thomas M.D. on 07/11/2016 at 16:47 Approved by: Anh Thomas M.D. on 07/11/2016 at 16:47 12-lead ECG Atrial fibrillation with RVR, rate of 136. Prolonged QT interval (QTc 503). No change from prior EKG on 06/27/16. Cardiac Echo Impressions Echo Interpretation Summary by Dr. Fransico Baker on 06/27/16 The patient was in normal sinus rhythm during the exam. The left ventricular cavity is small. The ejection fraction is estimated to be 70-75%. There are no focal wall motion abnormalities. Assessment of diastolic parameters indicates normal left ventricular diastolic function and normal filling pressures. The right ventricle grossly appears normal in size with probable normal systolic function. There is no significant valvular heart disease. The echocardiogram is within normal limits. Assessment & Plan 70 year old female with a history of diabetes, Factor V Leiden with recurrent DVTs, on Xarelto, history of TIA, who presents to the ED via EMS complaining of chest pain. Admitted for afib with RVR. # Atrial fibrillation with rapid ventricular rate, acute. Present on admission. resolved. - Pt presented with afib in 130s that required cardioversion to sinus rhythm. - She was given Diltiazem 25mg IV push and an additional of Diltiazem 120mg PO in the ED per cardiology recommendation. - appreciate cardiology consult. will f/u w/ recs - c/w Flecainide 50 mg twice a day and Diltiazem CD 120 mg daily - Continue home Xarelto - f/u w/ Dr. Marcelo in one month # Acute kidney injury. Present on admission. Resolved but has reoccurred again today - Baseline Cr around 1.0. - give gentle IVF and f/u - Avoid nephrotoxic drugs. # Acute cough and SOB - check viral PCR - repeat CXR in am - no indication for Abx at this time - c/w supportive care # Diabetes mellitus type 2 - BG 131 on admission. A1c 7.2 on 06/27. - Humalog medium dose correctional scale - Hold home metformin and glipizide # Factor V Leiden with recurrent DVTs - Patient on Xarelto at home; will continue # Hypertension, chronic, stable. - Continue current meds # Hyperlipidemia, chronic, stable. - Lipid panel on 06/27 showed elevated Triglycerides (383), but the rest was normal. - Continue home pravastatin # Depression, chronic, presume stable. - Continue home Effexor # Chronic back pain, stable. - Continue home Lyrica, Flexeril, [place]. # Obstructive sleep apnea, chronic, stable. - home CPAP. Dispo: possibly home in am pending resolution of DERICK and improved respiratory status GI Prophylaxis: H2 vero VTE Prophylaxis: Other (Xarelto) VTE Mechanical Devices: Intermittant Pneumatic CD Resuscitation Status: CPR: Attempt Resuscitation Time spent 35 min [place] Jul 13, 2016 17:42
--- NOTE | 2016-07-13 18:18 | NUR ---
Cough Pt having occasional cough with pain throughout shift. Given PRN Breathing treatments by RT and guifenasin Q6H as ordered. Cough and pain continues. paged to inform. New order for Joseph Villalobos received and administered to pt. Continuing to follow up with pt care.
[2016-07-13] MEDS: Venlafaxine XR 75 mg ER24 Capsule PO SCH (21:22)
[2016-07-13] MEDS: HYDROcodone-APAP 5-325 mg Tablet PO PRN (22:49)
[2016-07-14 01:08] VITALS: BP 133/73; PULSE 64; RESP 20; O2SAT 92
[2016-07-14 01:28] VITALS: PULSE 64; RESP 18; O2SAT 97
[2016-07-14] MEDS: Albuterol 1.25 mg/3 mL Inhalation Solution NEB PRN (01:28)
[2016-07-14 05:22] VITALS: BP 124/64; PULSE 65; RESP 20; O2SAT 94
[2016-07-14] MEDS: Phenol 1.4% 177 mL Spray MUC_MEMBRM PRN ×2 (05:52→11:18)
[2016-07-14] MEDS: guaiFENesin 20 mg/mL 10 mL Syrup PO PRN ×2 (05:52→11:17)
--- NOTE | 2016-07-14 05:56 | NUR ---
Cough Pt having persistent cough. Tessalon pearles and Robitussin. Denies chest pain, n/v or abd discomfort. Breathing Tx administered by RT as requested. Continuing to monitor. Addendum: 07/14/16 at 0649 by NADIR HOLGUIN RN Correction: Tessalon Pearles and Robitussin administered*
[2016-07-14] MEDS: Fluticasone 0.05% 15 Spray/2 Gm 16 Gm Nasal Spray NASAL SCH (08:19)
[2016-07-14] MEDS: Diltiazem CD 120 mg ER24 Capsule PO SCH (08:28)
[2016-07-14 08:34] LABS: Mean Corpuscular Hemoglobin 28.9 pg (27.0-35.0); Mean Corpuscular Volume 92.4 fL (81-100)
[2016-07-14] MEDS: Insulin LISPRO 300 Unit/3 mL Inj SUBQ SCH ×2 (08:36→11:41)
[2016-07-14 09:02] VITALS: BP 158/72; PULSE 85; RESP 18; O2SAT 95
[2016-07-14 09:27] VITALS: PULSE 66; RESP 18; O2SAT 98
[2016-07-14 10:23] VITALS: PULSE 65
--- NOTE | 2016-07-14 10:47 | DRSVH ---
PROCEDURE: X-RAY CHEST, TWO VIEWS ([id number]) INDICATIONS: cough, SOB TECHNIQUE: 2 views of the chest were acquired. COMPARISON: [facility], CR, XR CHEST 1VW (PORTABLE), 07/11/2016, 16:29. FINDINGS: Surgical changes and devices: Lower cervical spine fixation hardware. Lungs and pleura: No pleural effusions or pneumothorax. Lungs are clear. Mediastinum: Mediastinal contours are normal. Heart size is normal. Bones and chest wall: No suspicious bony abnormalities. Soft tissues appear unremarkable. IMPRESSION: Expiratory chest demonstrating no definite acute cardiopulmonary disease. Dictated by: Prem Knapp RRA Interpreted: Dileep Strickland MD on 07/14/2016 at 10:47 Transcribed by: DONALD on 07/14/2016 at 10:47 Approved by: Dileep Strickland M.D. on 07/14/2016 at 12:07
[2016-07-14] MEDS ORDERED: FLC50T PO (12:35)
[2016-07-14] MEDS ORDERED: DILT120C83 PO (12:35)
--- NOTE | 2016-07-14 12:41 | PCM.DIMED ---
Discharge Instructions Date of Service Jul 14, 2016 Dates of Hospitalization Jul 11, 2016 at 19:36 Discharge Diagnosis Discharge Diagnosis # Atrial fibrillation with rapid ventricular rate, acute. Present on admission. resolved. # Acute kidney injury. Present on admission. Resolved # Acute cough and SOB - unclear etiology but possibly due to side effect of Losartan # Diabetes mellitus type 2 # Factor V Leiden with recurrent DVTs - On Xarelto # Hypertension, chronic, stable. # Hyperlipidemia, chronic, stable. # Depression, chronic, presume stable. # Chronic back pain, stable. # Obstructive sleep apnea, chronic, stable. - home CPAP. Diet Low fat, Low Sodium, Heart Healthy, Diabetic Activity No restrictions Call your provider Fever or Chills, Shortness of breath, Bleeding, Chest pain Patient Instructions Seek immediate medical attention if any new or worsening signs or symptoms occur. Follow-up plan 1. Followup with primary care provider in 5-7 days or sooner if needed 2. Followup with cardiology (Dr. Marcelo) in one month Follow-up Provider: Dipesh Navarro MD Follow-up with PCP in: 1 week Provider: Adalgisa Marcelo MD Follow-up in: 4 weeks [place] Garnett Jul 14, 2016 12:40
[2016-07-14] MEDS ORDERED: predniSONE 20 mg Tablet PO ONE (12:50)
--- NOTE | 2016-07-14 13:09 | NUR ---
Social Work: Discharge Data: Pt is on day 3 of hospitalization. EMR reviewed. Pt's D/C orders are in. No d/c planning needs at this time. [facility] will continue to follow if needs arise. Assessment: Pt who is independent at baseline. Plan: Pt will d/c home via POV today. No d/c planning needs at this time. [facility] will continue to follow if needs arise. ROB Sanchez
--- NOTE | 2016-07-14 14:30 | NUR ---
Discharge nursing note: Patient was discharged to home at 1430. Patients IV was D/Cd intact. All of patients discharge information was reviewed with her and her questions were answered to her satisfaction. Patient was brought to the hospital lobby in a wheelchair by nursing staff member and she was driven to home by a friend.
--- NOTE | 2016-07-14 16:38 | PCM.DC.MED ---
Discharge Summary Date of Service Jul 14, 2016 Dates of Hospitalization Date of Hospital Admission Jul 11, 2016 at 19:36 Date of Discharge: Jul 14, 2016 Providers: Admitting Physician: Christopher Brenner MD Primary Care Physician: Dipesh Navarro MD Attending Physician: Christopher Brenner MD Diagnosis at Time of Discharge Diagnosis at Time of Discharge # Atrial fibrillation with rapid ventricular rate, acute. Present on admission. resolved. # Acute kidney injury. Present on admission. Resolved # Acute cough and SOB - unclear etiology but possibly due to side effect of Losartan # Diabetes mellitus type 2 # Factor V Leiden with recurrent DVTs - On Xarelto # Hypertension, chronic, stable. # Hyperlipidemia, chronic, stable. # Depression, chronic, presume stable. # Chronic back pain, stable. # Obstructive sleep apnea, chronic, stable. - home CPAP. Consultations 1. Cardiology (Dr. Marcelo) Procedures XRay, CTs & MRIs Date of Service: 07/11/16 1618 PROCEDURE: X-RAY CHEST ONE VIEW, PORTABLE ([id number]) IMPRESSION: No acute process. Cardiomegaly. Dictated by: Anh Thomas M.D. on 07/11/2016 at 16:47 Approved by: Anh Thomas M.D. on 07/11/2016 at 16:47 Date of Service: 07/14/16 0600 PROCEDURE: X-RAY CHEST, TWO VIEWS ([id number]) IMPRESSION: Expiratory chest demonstrating no definite acute cardiopulmonary disease. Dictated by: Prem Knapp RRA Interpreted: Dileep Strickland MD on 07/14/2016 at 10:47 Transcribed by: DONALD on 07/14/2016 at 10:47 Approved by: Dileep Strickland M.D. on 07/14/2016 at 12:07 ECG 12 Lead Atrial fibrillation with RVR, rate of 136. Prolonged QT interval (QTc 503). No change from prior EKG on 06/27/16. Cardiac Echo Impression Echo Interpretation Summary by Dr. Fransico Baker on 06/27/16 The patient was in normal sinus rhythm during the exam. The left ventricular cavity is small. The ejection fraction is estimated to be 70-75%. There are no focal wall motion abnormalities. Assessment of diastolic parameters indicates normal left ventricular diastolic function and normal filling pressures. The right ventricle grossly appears normal in size with probable normal systolic function. There is no significant valvular heart disease. The echocardiogram is within normal limits. Brief History As noted in H&P by Dr. Arellano: Ms. Asuncion Meeks is a pleasant 70 year old female with a history of diabetes, Factor V Leiden with recurrent DVTs, on Xarelto, history of TIA, who presents to the ED via EMS complaining of chest pain onset 1500 today after she woke up from a nap. Patient reports "stabbing" chest pain that became "squeezing " sensation with deep breath on the right chest. She checked her BP at home and it was normal but her HR was in the 140s. She denies any radiation to jaws or between her shoulder blades, which she had last time she went to the hospital. Patient was admitted to the hospital on 06/26/16 for similar symptoms. Her EKG then revealed A-fib with RVR. Diltiazem and labetalol were given before she spontaneously converted without cardioversion. Stress test and Echo at that time were both normal. Today, she admits to worse chest pain than last time. Associate symptoms include palpitations, SOB, dizziness, and "strangulating" sensation. She denies any diaphoresis, abdominal pain, headache, nausea, vomiting, fever, or chills. Patient had an episode of A-fib during an angiogram that required cardioversion 20 years ago, but no issue since then. She has never been diagnosed with CAD and denies history of OR. She states that she was on Carvedilol for many years, but that has to stop 6 months ago due to her allergy shot. Patient has severe seasonal allergy that requires regular allergy shot and was told that she should not have beta vero. In the ED, HR was 131, BP 150/81, WBC 12.4, BUN 32, Cr 1.14, glucose 131. Troponin was negative x1. Pro-BNP 182.5. CXR negative for acute cardiopulmonary process, but cardiomegaly noted. EKG showed afib with RVR. She was given IV boluses of diltiazem without success, and because of her increasing chest pain, she was cardioverted in the ED. Her rhythm remains sinus rhythm and patient reports significant improvement of her symptoms. Dr. Marcelo was contacted and recommended beginning Diltiazem 120mg daily and will start Fluconide in the morning. Hospital Course # Atrial fibrillation with rapid ventricular rate, acute. Present on admission. resolved. - Pt presented with afib in 130s that required cardioversion to sinus rhythm. - She was given Diltiazem 25mg IV push and an additional of Diltiazem 120mg PO in the ED per cardiology recommendation. - She converted to sinus rhythm soon after admission - appreciate cardiology consult. will f/u w/ recs - c/w Flecainide 50 mg twice a day and Diltiazem CD 120 mg daily - Continue home Xarelto - f/u w/ Dr. Marcelo in one month # Acute kidney injury. Present on admission. Resolved with IVF - Baseline Cr around 1.0. # Acute cough and SOB - viral PCR negative - repeat CXR negative - suspect cough likely 2ndry to medication side effect namely, Losartan which was started on admission in replacement for patient's home dose of Micardis. Plan to stop Losartan on d/c and if cough persist to f/u w/ PCP # Diabetes mellitus type 2 - BG 131 on admission. A1c 7.2 on 06/27. - home metformin and glipizide on d/c # Factor V Leiden with recurrent DVTs - Patient on Xarelto at home; will continue # Hypertension, chronic, stable. - Continue current meds # Hyperlipidemia, chronic, stable. - Lipid panel on 06/27 showed elevated Triglycerides (383), but the rest was normal. - Continue home pravastatin # Depression, chronic, presume stable. - Continue home Effexor # Chronic back pain, stable. - Continue home Lyrica, Flexeril, [place]. # Obstructive sleep apnea, chronic, stable. - home CPAP. by day of d/c lungs CTA bilat. CV: RRR. Exam Vital Signs (Last) Date Time Temp Pulse Resp B/P Pulse Ox O2 Delivery O2 Flow Rate FiO2 07/14/16 10:23 65 07/14/16 09:27 18 98 Room Air 07/14/16 09:02 37.3 158/72 07/11/16 17:02 2 Test 3/26/17 16:10 07/11/16 18:21 07/11/16 20:31 07/12/16 05:20 Prothrombin Time 10.5sec (8.1-12.5) Prothromb Time International Ratio 0.98ratio Activated Partial Thromboplast Time 27.5sec (22.8-33.0) Pro-B-Type Natriuretic Peptide 182.5pg/mL (0-301) Hold Sidhu Top Tube Received (Received) Hold Urine Received (Received) Urine Color Yellow (YELLOW) Urine Appearance Clear (CLEAR,HAZY) Urine pH 7.0 (5.0-8.0) Urine Specific [place] <1.005 (1.003-1.035) Urine Protein Negativemg/dL (NEG,TRACE) Urine Glucose (UA) Negativemg/dL (NEGATIVE) Urine Ketones Negativemg/dL (NEGATIVE) Urine Occult Blood Trace (NEGATIVE) Urine Nitrite Negative (NEGATIVE) Urine Bilirubin Negative (NEGATIVE) Urine Urobilinogen Normalmg/dL (NORMAL) Urine Leukocyte Esterase Negative (NEGATIVE) Urine RBC 0-2/hpf (0-2) Urine WBC 0-5/hpf (0-5) Urine Epithelial Cells Few/hpf (NONE-MOD) Urine Crystals None seen (NONE SEEN) Urine Bacteria Few/hpf (NONE-FEW) Urine Hyaline Casts None/lpf (NONE) Urine Granular Casts None seen (NONE SEEN) Urine Waxy Casts None seen (NONE SEEN) Urine Red Blood Cell Casts None seen (NONE SEEN) Urine White Blood Cell Casts None seen (NONE SEEN) Urine Mucus None seen (None Seen) Urine Trichomonas None seen (NONE SEEN) Urine Yeast None (NONE SEEN) Urinalysis Comment None Urine Culture Reflexed Not indicated Neutrophils (%) (Auto) 44.5% (40-74) Lymphocytes (%) (Auto) 43.7% (14-46) Monocytes (%) (Auto) 7.9% (4-12) Eosinophils (%) (Auto) 3.5% (0-5) Basophils (%) (Auto) 0.3% (0-3) Magnesium Level 1.8mg/dL (1.6-2.6) Total Bilirubin 0.2mg/dL (0.0-1.2) Aspartate Amino Transf (AST/SGOT) 12U/L (0-50) Alanine Aminotransferase (ALT/SGPT) 13U/L (0-32) Alkaline Phosphatase 83U/L (25-165) Troponin T 0.010ug/L (0.0-0.011) Total Protein 5.7g/dL (6.4-8.4) Albumin 3.6g/dL (3.4-5.0) Test 07/14/16 07:40 White Blood Count 10.8th/mm3 (3.8-10.1) Red Blood Count 3.81mil/mm3 (3.90-5.20) Hemoglobin 11.0g/dL (12.0-15.6) Hematocrit 35.2% (35.0-46.0) Mean Corpuscular Volume 92.4fL (81-100) Mean Corpuscular Hemoglobin 28.9pg (27.0-35.0) Mean Corpuscular Hemoglobin Concent 31.3% (32.0-37.0) Red Cell Distribution Width 13.8% (12.3-15.4) Platelet Count 283bil/L (150-400) Sodium Level 139mEq/L (134-144) Potassium Level 4.5mEq/L (3.5-5.2) Chloride Level 99mEq/L (97-108) Carbon Dioxide Level 25mmol/L (18-29) Blood Urea Nitrogen 20mg/dL (8-27) Creatinine 0.98mg/dL (0.57-1.00) Estimat Glomerular Filtration Rate 80mL/min (>59) Glucose Level 155mg/dL (60-99) Calcium Level 9.0mg/dL (8.5-10.1) Discharge Medications Discharge Medications Acetaminophen (Acetaminophen) 500 Mg Tablet 1,000 MG PO HS (Reported) Calcium Carbonate/Vitamin D3 (Calcium + Vitamin D Tablet) 1 Each Tablet 1 EACH PO DAILY (Reported) Cholecalciferol (Vitamin D3) (Vitamin D3) 2,000 Unit Capsule 4,000 UNIT PO DAILY (Reported) Diltiazem ER (Cardizem CD) 120 Mg Cap.er.24h 120 MG PO DAILY Prescribed by: JUANCARLOS NORRIS MD Ferrous Sulfate, Dried (Iron) 159 Mg Tablet.er Unknown Dose PO BID (Reported) Flecainide Acetate (Flecainide Acetate) 50 Mg Tablet 50 MG PO Q12 Prescribed by: JUANCARLOS NORRIS MD Fluticasone Propionate (Fluticasone Propionate) 50 Mcg/Actuation [place].susp 15.8 ML NS DAILY (Reported) Glipizide (Glipizide) 5 Mg Tablet 5 MG PO BID (Reported) Metformin ER (Metformin ER) 500 Mg Tablet 500 MG PO DAILY (Reported) Pravastatin (Pravastatin) 10 Mg Tablet 10 MG PO HS (Reported) Pregabalin (Lyrica) 75 Mg Capsule 75 MG PO DAILYWM (Reported) Pregabalin (Lyrica) 150 Mg Capsule 150 MG PO HS (Reported) Rivaroxaban (Xarelto) 1 Each Tab.ds.pk 1 EACH PO DAILY (Reported) Telmisartan/HCTZ 80-25 mg (Micardis HCT 80-25 mg) 1 Each Tablet 1 TABLET PO DAILY (Reported) Venlafaxine ER (Effexor XR) 150 Mg Capsule 150 MG PO DAILY (Reported) As needed Albuterol HFA (Proair HFA) 8.5 Gm Hfa.aer.ad 2 PUFFS INHALATION Q4H PRN PRN For Shortness of Breath (Reported) Cyclobenzaprine (Cyclobenzaprine) 5 Mg Tablet 5 MG PO TID PRN PRN Spasm ( Reported) Hydrocodone-Acetaminophen 5-325 mg (Hydrocodone-Acetaminophen 5-325 mg) 1 Each Tablet 1 TABLET PO Q4H PRN PRN For Pain (Reported) Followup Plan Disposition: Home Follow-up plan 1. Followup with primary care provider in 5-7 days or sooner if needed 2. Followup with cardiology (Dr. Marcelo) in one month Discharge Diet: Low fat, Low Sodium, Heart Healthy, Diabetic Discharge Activity: No restrictions Patient Instructions Seek immediate medical attention if any new or worsening signs or symptoms occur. Follow-up Provider: Dipesh Navarro MD Follow-up with PCP in: 1 week Provider: Adalgisa Marcelo MD Follow-up in: 4 weeks Time spent 35 min copies to: Dipesh Navarro MD; Adalgisa Marcelo MD, Masoud Jul 14, 2016 16:38
[2016-07-15] MEDS ORDERED: PRE20 PO (21:17)
[2016-10-01] MEDS ORDERED: ATOR20TA PO (15:51)
[2016-10-01] MEDS ORDERED: CETI10CA PO (15:51)
[2016-10-01] MEDS ORDERED: METO50TA7 PO (15:51)
[2016-10-01] MEDS ORDERED: HYDR5SYR PO (15:51)
[2016-10-01] MEDS ORDERED: BENZ-12 PO (15:51)
[2016-10-01] MEDS ORDERED: GLIP10TA10 PO (15:51)
[2016-10-01] MEDS ORDERED: PROP225T PO (15:51)
[2016-10-01] MEDS ORDERED: PRE20 PO (15:51)
== END 2016-07-14 14:35 | disposition home or self-care (01) ==
LOC: SED 15:53 → INTOOBSV 19:36 → MPC 19:36
PROVIDERS: ADMIT Hospitalist; ATTEND Hospitalist
DX: I48.0 Paroxysmal atrial fibrillation (principal); N17.9 Acute kidney failure, unspecified; R05 Cough; R06.02 Shortness of breath; E11.9 Type 2 diabetes mellitus without complications; D68.51 Activated protein C resistance; I10 Essential (primary) hypertension; E78.5 Hyperlipidemia, unspecified; F32.9 Major depressive disorder, single episode, unspecified; M54.89 Other dorsalgia; G47.33 Obstructive sleep apnea (adult) (pediatric); I24.8 Other forms of acute ischemic heart disease; E66.3 Overweight; K21.9 Gastro-esophageal reflux disease without esophagitis; Z88.0 Allergy status to penicillin; Z88.8 Allergy status to other drugs, medicaments and biological substances; Z91.041 Radiographic dye allergy status; Z79.84 Long term (current) use of oral hypoglycemic drugs; Z79.01 Long term (current) use of anticoagulants; Z86.73 Personal history of transient ischemic attack (TIA), and cerebral infarction without residual deficits; Z86.718 Personal history of other venous thrombosis and embolism; Z82.3 Family history of stroke; Z68.35 Body mass index [BMI] 35.0-35.9, adult
CPT/HCPCS: 36415; 71010; 71020; 80048; 80053; 81000; 83735; 83880; 84484; 85025; 85027; 85610; 85730; 87633; 92960; 93005; 94640; 94664; 94799; 96361; 96374; 99152; 99291; G0378; J1815; J7030; J7613

== ENCOUNTER 2016-07-15 16:42 | Emergency (ER) | payer MEDICARE, OTHER ==
[2016-07-15] VITALS (12 sets, daily range): BP systolic 135–173; BP diastolic 55–78; PULSE 56–79; RESP 13–32; O2SAT 93–100
[~2016-07-15] VITALS: Ht 167.6 cm; Wt 98.6 kg
[~2016-07-15 16:42] MED LIST changes: +ACET-171 PO; +ALBU8.5H2 INHALATION; +DILT120C83 PO; +FLC50T PO; -HYDR25TA4 PO; -IPRA4AER IH; -METF500T4 PO; +METF500T7 PO
--- NOTE | 2016-07-15 17:03 | ED.REPORT ---
HPI-Dyspnea / Wheezing Date of Service Jul 15, 2016 ED Provider: Michael Merchant MD A 70 year old female with a history of A-fib, hypertension, and diabetes mellitus presents to the ED complaining of intermittent episodes of SOB that became increasingly worse at 1300 this afternoon. Her symptoms initially began 4 days ago while admitted to the hospital and have become increasingly worse since onset. Patient took telson pearls and used her albuterol inhaler every 4 hours with little relief. She describes a "deep" productive and persistent cough with white sputum. Patient was recently seen in the ED on 07/11 for chest pain. She was cardioverted and admitted for A-fib with RVR. Viral respiratory panel was negative during admission. Patient was given a dose of prednisone prior to discharge. She denies any current fevers, nasal congestion or chest pain. Nursing Notes Stated Complaint: SHORTNESS OF BREATH Chief Complaint: Respiratory Distress Nursing Notes Reviewed: Yes Allergies: Coded Allergies: Iodinated Contrast Media - Oral and (Verified Allergy, Mild, Hives, ) PATIENT STATES CONTRAST ALLERGY YEARS AGO DURING IVP. PATIENT STATES WAS GIVEN BENADRYL AND HAS BEEN PRE TREATED PRIOR TO RECEIVING CONTRAST SINCE. LL Penicillins (Verified Allergy, Unknown, 07/15/16) codeine (Verified Allergy, Unknown, 07/15/16) procaine (Verified Allergy, Unknown, 07/15/16) ENTERED FROM UNCODED ALLERGIES Uncoded Allergies: NOVACAINE (Allergy, Unknown, 06/26/16) Scheduled Acetaminophen (Acetaminophen) 500 Mg Tablet 1,000 MG PO HS Calcium Carbonate/Vitamin D3 (Calcium + Vitamin D Tablet) 1 Each Tablet 1 EACH PO DAILY Cholecalciferol (Vitamin D3) (Vitamin D3) 2,000 Unit Capsule 4,000 UNIT PO DAILY Diltiazem ER (Cardizem CD) 120 Mg Cap.er.24h 120 MG PO DAILY Ferrous Sulfate, Dried (Iron) 159 Mg Tablet.er Unknown Dose PO BID Flecainide Acetate (Flecainide Acetate) 50 Mg Tablet 50 MG PO Q12 Fluticasone Propionate (Fluticasone Propionate) 50 Mcg/Actuation [place].susp 15.8 ML NS DAILY Glipizide (Glipizide) 5 Mg Tablet 5 MG PO BID Metformin ER (Metformin ER) 500 Mg Tablet 500 MG PO DAILY Pravastatin (Pravastatin) 10 Mg Tablet 10 MG PO HS Prednisone (PredniSONE) 20 Mg Tablet 40 MG PO DAILY Pregabalin (Lyrica) 75 Mg Capsule 75 MG PO DAILYWM Pregabalin (Lyrica) 150 Mg Capsule 150 MG PO HS Rivaroxaban (Xarelto) 1 Each Tab.ds.pk 1 EACH PO DAILY Telmisartan/HCTZ 80-25 mg (Micardis HCT 80-25 mg) 1 Each Tablet 1 TABLET PO DAILY Venlafaxine ER (Effexor XR) 150 Mg Capsule 150 MG PO DAILY Scheduled PRN Albuterol HFA (Proair HFA) 8.5 Gm Hfa.aer.ad 2 PUFFS INHALATION Q4H PRN PRN For Shortness of Breath Cyclobenzaprine (Cyclobenzaprine) 5 Mg Tablet 5 MG PO TID PRN PRN Spasm Hydrocodone-Acetaminophen 5-325 mg (Hydrocodone-Acetaminophen 5-325 mg) 1 Each Tablet 1 TABLET PO Q4H PRN PRN For Pain General Time Seen by MD: 17:00 Chief Complaint Shortness of breath Hx Obtained From: Patient Arrived By: Walk-in Sudden in Onset?: No Onset Occurred: 5 - 8 hours ago Symptom Duration: Since onset Location: : None Associated with: Reports: Cough, Denies: Chest pain, Fever Pertinent Negative: Pt denies other symptoms Recent Healthcare: Recent doctor visit, Recent hospitalization Past Medical History Past Medical History Notes: PCP: Dr. Ramon Landon Past Medical History Hypertension Angina Sleep apnea - CPAP Diabetes Mellitus Past Surgical History Endocardectomy Neck surgery Bilateral foot surgery Back surgery Reports: Appendectomy, Cholecystectomy Smoking History Never Smoker Social History Other Social History: Good social support, Local resident Ambulatory Status Independent Review of Systems Constitutional: Denies: Chills, Fever Respiratory: Reports: Prod cough, white, Shortness of breath Cardiovascular: Denies: Chest pain Complete sys rev & neg: except as marked. GI: Denies: Abdominal pain, Nausea, Vomiting Neurologic: Denies: Change LOC Physical Exam Physical Exam Notes: constant dry cough, clearly distressing to patient Initial Vital Signs Vital Signs (First) Date Time Temp Pulse Resp B/P Pulse Ox O2 Delivery O2 Flow Rate FiO2 07/15/16 16:47 37.0 67 32 169/76 100 Room Air Initial VS: Reviewed Head / Eyes: Atraumatic, Normocephalic, PERRL Extremities: Vascular intact, Neuro intact, No swelling, No tenderness Skin: Warm, Dry, No cyanosis Neurologic: Alert, Oriented, Nonfocal Psychiatric: Mood/affect normal, Behavior normal, Normal thought content General/Constitutional: Awake, Alert, No acute distress Neck: Atraumatic, Supple Respiratory / Chest: Atraumatic Wheezing / Retractions: Positive: Wheeze insp/exp diffuse (Bilaterally ) REPSIRATORY: Good air movement Cardiovascular: Heart rate NL, Regular rhythm, Heart sounds NL, No gallop, No murmurs, No rubs ENT: Atraumatic, Airway patent, Mucous membranes moist, Pharynx NL Interpretation & Diagnostics 07/14/2016 CHEST X-RAY IMPRESSION: Expiratory chest demonstrating no definite acute cardiopulmonary disease. Dictated by: Prem KURTZ Interpreted: Dileep Strickland MD on 07/14/2016 at 10:47 Lab Results Interpretation Result Diagram: 07/15/16 1727 07/15/16 1727 Test 07/15/16 17:27 07/15/16 18:32 White Blood Count 14.8th/mm3 (3.8-10.1) Red Blood Count 4.13mil/mm3 (3.90-5.20) Hemoglobin 12.0g/dL (12.0-15.6) Hematocrit 37.1% (35.0-46.0) Mean Corpuscular Volume 89.8fL (81-100) Mean Corpuscular Hemoglobin 29.1pg (27.0-35.0) Mean Corpuscular Hemoglobin Concent 32.3% (32.0-37.0) Red Cell Distribution Width 13.8% (12.3-15.4) Platelet Count 308bil/L (150-400) Neutrophils (%) (Auto) 56.6% (40-74) Lymphocytes (%) (Auto) 33.7% (14-46) Monocytes (%) (Auto) 6.7% (4-12) Eosinophils (%) (Auto) 2.4% (0-5) Basophils (%) (Auto) 0.3% (0-3) Prothrombin Time 10.6sec (8.1-12.5) Prothromb Time International Ratio 0.99ratio D-Dimer 1.05mg/L FEU (<0.50) Sodium Level 140mEq/L (134-144) Potassium Level 3.9mEq/L (3.5-5.2) Chloride Level 99mEq/L (97-108) Carbon Dioxide Level 20mmol/L (18-29) Blood Urea Nitrogen 23mg/dL (8-27) Creatinine 1.08mg/dL (0.57-1.00) Estimat Glomerular Filtration Rate 72mL/min (>59) Glucose Level 134mg/dL (60-99) Calcium Level 9.8mg/dL (8.5-10.1) Magnesium Level 1.8mg/dL (1.6-2.6) Total Bilirubin 0.2mg/dL (0.0-1.2) Aspartate Amino Transf (AST/SGOT) 18U/L (0-50) Alanine Aminotransferase (ALT/SGPT) 19U/L (0-32) Alkaline Phosphatase 104U/L (25-165) Troponin T < 0.010ug/L (0.0-0.011) Pro-B-Type Natriuretic Peptide 286.9pg/mL (0-301) Total Protein 6.9g/dL (6.4-8.4) Albumin 4.1g/dL (3.4-5.0) Hold Sidhu Top Tube Received (Received) Urine Color Yellow (YELLOW) Urine Appearance Clear (CLEAR,HAZY) Urine pH 7.0 (5.0-8.0) Urine Specific [place] <1.005 (1.003-1.035) Urine Protein Negativemg/dL (NEG,TRACE) Urine Glucose (UA) Negativemg/dL (NEGATIVE) Urine Ketones Negativemg/dL (NEGATIVE) Urine Occult Blood Negative (NEGATIVE) Urine Nitrite Negative (NEGATIVE) Urine Bilirubin Negative (NEGATIVE) Urine Urobilinogen Normalmg/dL (NORMAL) Urine Leukocyte Esterase Negative (NEGATIVE) Urine RBC 0-2/hpf (0-2) Urine WBC 0-5/hpf (0-5) Urine Epithelial Cells Few/hpf (NONE-MOD) Urine Crystals None seen (NONE SEEN) Urine Bacteria Few/hpf (NONE-FEW) Urine Hyaline Casts None/lpf (NONE) Urine Granular Casts None seen (NONE SEEN) Urine Waxy Casts None seen (NONE SEEN) Urine Red Blood Cell Casts None seen (NONE SEEN) Urine White Blood Cell Casts None seen (NONE SEEN) Urine Mucus None seen (None Seen) Urine Trichomonas None seen (NONE SEEN) Urine Yeast None (NONE SEEN) Urinalysis Comment None Urine Culture Reflexed Not indicated ECG Interpretation ECG Interpretation: Sinus Rhythm Rate 66 bpm Inferior Q waves Prolonged QT; new compared to 07/11 Time: 17:58 Interpreted by: ED physician X-Ray Chest Interpretation Chest Xray Interpretation: IMPRESSION: No acute process. Dictated by: Anh Thomas M.D. on 07/15/2016 at 17:27 Interpretation / Wet Read by: Interpret - Radiologist Re-Eval/Medical Decision Med Decision/Clinical Course 70-year-old female whose primary complaint tonight is cough. Did also report some dyspnea however this is in the context of a paroxysmal cough. Does not have an infiltrate on chest x-ray does not have a fever leukocytosis may be related to prednisone given yesterday, recent viral respiratory panel is diffusely negative. She has a d-dimer that is mildly elevated however given her history, and the fact that she is anticoagulated pulmonary embolism seems highly unlikely. Additionally the patient has a contrast allergy. my sense is that this is not a pulmonary embolus. She was given hydrocodone/APAP 1 by mouth here and then nebulized lidocaine 100 mg 2. Her cough was much improved following this. She was also given prednisone 40 mg by mouth. The patient will continue on prednisone for a 5 day course, she will have 10 Vicodin to suppress her cough and I also recommended that she try some dextromethorphan. Recommended she follow up with primary care soon. Re-Evaluation/Progress #1: Time of Eval: 19:19 )( Re-Eval Resp / Chest: Mild wheezing Patient Status: Condition unchanged Re-Evaluation/Progress Note: Patient is rechecked. Her symptoms have not improved. Associated symptoms include perssistent cough and headache. The hydrocodone helped reduced the frequency of the coughing fits. Re-Evaluation/Progress #2: Time of Eval: 21:00 Patient Status: Condition improved Re-Evaluation/Progress Note: Patient states that her cough is still present but she is feeling much better. All of the patient's questions are adressed. She understands and agrees with the treatment plan. Consultation : Referral / Consult Name: Christopher Brenner MD Consulted With: Hospitalist Call Returned at: 19:28 Slate Splitter: Agrees with eval, Agrees with plan Note: Recommends steroid treatment. Counseled Regarding: Diagnosis, Lab results, Need for follow-up, When/why to return to ED Discharge & Departure Impression: Primary Impression: Cough Disposition: Home Discharge Condition All VS Reviewed: Yes Condition: Stable Additional Instructions: Thank you for trusting us with your care this evening. Your emergency department evaluation today included interview, examination, lab work, EKG and chest X-ray. Your results did not reveal a dangerous cause for concern at this time and you symptoms should resolve in the next week. Please schedule a follow-up appointment with your primary care physician MARGA for a recheck. I recommend you buy an [id number] guaifenesin/ dexromethorphan to use as directed on packaging for cough. May also use hydrocodone/apap. Take the prednisone, 40 mg daily for 5 days, day 1 given in ED. Please return to the emergency department for any new or worsening conditions including any chest pain, numbness/tingling, shortness of breath, fever or chills. Referrals: Dipesh Navarro MD (PCP) Scribe Attestation Portions of this note were transcribed by Peterson Roca. I, Dr. Merchant personally performed the history, physical exam and medical decision-making; I reviewed and confirmed the accuracy of the information in the transcribed note. Signed by: Adrash Pierson, 07/15/16 2130. copies to: Dipesh Navarro MD, Donald L MD Jul 15, 2016 17:03 PETERSON ROCA Jul 15, 2016 17:18
[2016-07-15] MEDS ORDERED: Albuterol-Ipratropium 3 mL Inhalation Solution NEB ONE (17:20)
[2016-07-15] MEDS ORDERED: HYDROcodone-APAP 5-325 mg Tablet PO ONE (17:20)
--- NOTE | 2016-07-15 17:29 | DRSVH ---
PROCEDURE: X-RAY CHEST ONE VIEW, PORTABLE ([id number]) INDICATIONS: dyspnea TECHNIQUE: One view of the chest was acquired. COMPARISON: [facility], CR, XR CHEST 1VW (PORTABLE), 07/11/2016, 16:29. [facility], [facility], [facility]R CHEST 1VW (PORTABLE), 06/26/2016, 21:52. [facility], CR, XR CHEST 2VW, 06/17, 7:56. FINDINGS: Surgical changes and devices: Cervical fusion hardware is present. Lungs and pleura: No pleural effusions or pneumothorax. Lungs are clear. Mediastinum: Mediastinal contours appear normal. Heart size is normal. Bones and chest wall: No suspicious bony lesions. Overlying soft tissues appear unremarkable. IMPRESSION: No acute process. Dictated by: Anh Thomas M.D. on 07/15/2016 at 17:27 Approved by: Anh Thomas M.D. on 07/15/2016 at 17:27
[2016-07-15 17:37] LABS: BASOPHILS % (AUTO) 0.3 % (0-3); EOSINOPHILS % (AUTO) 2.4 % (0-5); MONOCYTES % (AUTO) 6.7 % (4-12); Mean Corpuscular Hemoglobin 29.1 pg (27.0-35.0); Mean Corpuscular Volume 89.8 fL (81-100); NEUTROPHILS % (AUTO) 56.6 % (40-74); Platelet Count 308 bil/L (150-400)
[2016-07-15 17:55] LABS: D-Dimer 1.05 mg/L FEU (<0.50); INR 0.99 ratio
[2016-07-15 18:10] LABS: Magnesium 1.8 mg/dL (1.6-2.6)
[2016-07-15 18:15] LABS: TROPONIN T < 0.010 ug/L (0.0-0.011)
[2016-07-15 18:55] LABS: APPEARANCE,URINE CLEAR (CLEAR,HAZY); COLOR,URINE YELLOW (YELLOW)
[2016-07-15 18:56] LABS: OCCULT BLOOD,URINE NEGATIVE (NEGATIVE); UROBILINOGEN,URINE NORMAL (NORMAL)
[2016-07-15] MEDS ORDERED: Lidocaine PF 2% 5 mL Inhalation Solution INHALATION ONE ×2 (19:25→21:10)
[2016-07-15] MEDS ORDERED: Lidocaine 2% 20 mg/mL 5 mL Cardiac Syringe ONE ×2 (19:45→21:10)
[2016-07-15] MEDS ORDERED: predniSONE 20 mg Tablet PO ONE (19:50)
[2016-07-15] MEDS ORDERED: _HYDROcodone/APAP 5-325 mg Tablet PO PRN (19:50)
[2016-07-15] MEDS ORDERED: PRE20 PO (21:17)
[2016-10-01] MEDS ORDERED: GLIP10TA10 PO (15:51)
[2016-10-01] MEDS ORDERED: METO50TA7 PO (15:51)
[2016-10-01] MEDS ORDERED: ATOR20TA PO (15:51)
[2016-10-01] MEDS ORDERED: PROP225T PO (15:51)
[2016-10-01] MEDS ORDERED: PRE20 PO (15:51)
[2016-10-01] MEDS ORDERED: CETI10CA PO (15:51)
[2016-10-01] MEDS ORDERED: BENZ-12 PO (15:51)
[2016-10-01] MEDS ORDERED: HYDR5SYR PO (15:51)
== END 2016-07-15 22:14 | disposition home or self-care (01) ==
LOC: SED 16:42
DX: R05 Cough (principal); I10 Essential (primary) hypertension; E11.9 Type 2 diabetes mellitus without complications; I48.91 Unspecified atrial fibrillation; Z79.84 Long term (current) use of oral hypoglycemic drugs; Z88.0 Allergy status to penicillin; Z88.8 Allergy status to other drugs, medicaments and biological substances; Z91.041 Radiographic dye allergy status
CPT/HCPCS: 36415; 71010; 80053; 81000; 83735; 83880; 84484; 85025; 85378; 85610; 93005; 94640; 94664; 99285; G0463; J2001; J7620

== ENCOUNTER 2016-10-04 01:46 | Day surgery (SDC) | payer MEDICARE, OTHER ==
[2016-10-04] VITALS (10 sets, daily range): BP systolic 124–160; BP diastolic 51–89; PULSE 62–83; RESP 14–19; O2SAT 95–98
[~2016-10-04] VITALS: Ht 167.6 cm; Wt 100.9 kg
[~2016-10-04 01:46] MED LIST changes: +ATOR20TA PO; +BENZ-12 PO; +CETI10CA PO; -DILT120C83 PO; -FLC50T PO; +GLIP10TA10 PO; -GLPZ5T PO; +HYDR5SYR PO; +METO50TA7 PO; -PRAV10TA2 PO; +PRE20 PO; +PROP225T PO
[2016-10-04] MEDS ORDERED: Hydrocortisone 50 mg/mL 2 mL Inj IV PRN (08:50)
[2016-10-04] MEDS ORDERED: CHOL5000 PO (10:12)
[2016-10-04] MEDS ORDERED: Insulin Human REGular-Omnicell 100 Unit/mL ONE (10:54)
[2016-10-04] MEDS ORDERED: Insulin Human REGular-Omnicell 100 Unit/mL SUBQ ONE (11:00)
[2016-10-04] MEDS ORDERED: 0.9% Sodium Chloride 50 ML ONE (12:21)
[2016-10-04] MEDS ORDERED: Insulin GLARgine 100 Unit/mL Syringe SUBQ ONE (12:30)
[2016-10-04] MEDS ORDERED: Insulin Human REGular 300 Unit/3 mL Inj SUBQ ONE (12:30)
[2016-10-04] MEDS ORDERED: fentaNYL-PF 50 mCg/mL 2 mL Inj ONE (12:42)
--- NOTE | 2016-10-04 13:04 | NUR ---
Pre Heart Cath Pt arrived to [facility], accompanied by , around 0930. IVs started X2. Labs obtained from [facility]. Vitals stable. BG 312; MD notified and insulin orders received. Jacobson placed prior to procedure for frequency. Hx WERNER; pt reports CPAP is in car if she is admitted overnight. Pt confirmed that she followed MD's instructions for pre-medication of Iodine allergy. Pt taken to laborer pipeline at 1235 in stable condition.
[2016-10-04] MEDS ORDERED: hydrALAZINE 20 mg/mL Inj ONE (13:10)
--- NOTE | 2016-10-04 15:01 | NUR ---
Post heart cath Pt returned to [facility] at 1400. Right groin site soft and nontender. Vitals stable. Pt placed on 2L oxygen for hx of WERNER and pt sleepy. BG 236; MD aware. Family at bedside.
--- NOTE | 2016-10-04 17:01 | NUR ---
Recovery completed at 1600 - Jacobson catheter removed without difficulty, patient voided prior to discharge. Right femoral puncture site is soft and non-tender at D/C. Dressing changed prior to ambulation - site remained dry and soft post ambulation. D/C instructions reviewed with patient and patient's , "Daniel". Home medications reviewed - new prescriptions given to patient - copies of prescriptions faxed to [place] - pt to hot die picker tomorrow.
--- NOTE | 2016-10-07 08:18 | CS94 ---
[address] [address] DIAGNOSTIC CARDIAC CATHETERIZATION PATIENT: MARCOS BRANDT : 1945 MR#: [id number] ADMIT: 10/04/2016 JOB ID: [id number] SERVICE DATE: 10/04/2016 CHIEF COMPLAINT: Shortness of breath. PATIENT PRESENTATION: This is a 70-year-old woman with multiple coronary artery disease risk factors, including diabetes and excess weight. She presents with worsening shortness of breath, and she is here for right and left heart cath. PROCEDURES PERFORMED: 1. Right common femoral artery access under ultrasound guidance. 2. Left heart catheterization-selective coronary angiogram. 3. Right heart catheterization with complete saturation and hemodynamic measurements of right atrial, right ventricular, pulmonary artery pressure, and pulmonary capillary wedge pressure. 4. Closure via StarClose. METHOD: Following informed consent, the patient was prepped and draped in the usual sterile fashion. A 6-Swedish sheath was placed in the right common femoral artery. An 8-[place] sheath was placed in the common femoral vein. Sheath placement was confirmed via femoral angiogram. [place] catheter was advanced into the left pulmonary artery. Cardiac output was calculated via Yas and thermodilution method. Simultaneous pressures were recorded in the pulmonary capillary wedge pressure and left ventricle. The [place] catheter was withdrawn into the pulmonary artery. Pulmonary artery pressure was recorded. [place] catheter was withdrawn in the right ventricle. Simultaneous slow paper speed recordings were obtained of right ventricle and left ventricle pressure to rule out ventricular interdependence. [place] catheter was withdrawn to the right atrial and right atrial pressure was recorded. [place] catheter was withdrawn. Complete saturation run was performed. Ventriculogram was deferred deliberately because the left ventricular filling pressure was elevated. Pigtail was withdrawn from the left ventricle into the aorta under continuous hemodynamic monitoring. No evidence of aortic stenosis noted. JL4 and JR4 catheters were used to engage the left main and right coronary artery ostia respectively. Hand injection craniocaudal angulation was used to obtain selective coronary angiograms. All exchanges were performed over a wire. StarClose was used to obtain hemostasis. No complications immediately post-procedure. FINDINGS: COMMON FEMORAL ANGIOGRAM: right [employer] C [employer] gives rise to SFA and profunda. Sheath enters right [employer] C [employer] at the lower third of femoral head. There is no contrast extravasation or dissection. HEMODYNAMICS: Cardiac output by thermodilution method is 8.7 L. Cardiac output by thermodilution method is 8.12 L. Pressures are as follows: Right atrial pressure is 10. Right ventricular pressure is 50, with end-diastolic of 14. Pulmonary artery pressure is 50/16 with mean of 27 mmHg. PWCP was 26 mm Hg; LV pressure 171 mm Hg systolic There is no evidence of aortic stenosis based on pullback. No evidence of shunt based on saturation run. PA saturation 71% RV saturation is 73% RA saturation is 76%, IVC saturation is 86% SVC could not be accessed right [employer] sat was 98% Transpulmonary gradient (mean PAp - PCWP) is 1 mm hg. CORONARY ANGIOGRAMS: LM is a normal caliber vessel. It gives rise to LAD, RI and LCX; no obstructive lesions. LAD is a normal caliber vessel. It gives rise to medium D1 and small D2 and D3. No obstructive lesions. RI is a large vessel, which gives rise to 2 big branches. No obstructive lesions. LCX is a non-dominant vessel which gives rise to large OM1. No obstructive lesions. RCA is a dominant vessel. It gives rise to big branching PDA and PL branches. No obstructive lesions. IMPRESSION: REASSURING CARDIAC CATH. Normal coronary arteries without obstructive lesions. R and LHC are characterized by elevated filling pressures with PCWP of 26 mm Hg and associated elevation in PA pressure of 50/16 with mean PA pressure of 27 mm Hg. PA pressure is elevated due to high wedge pressure. PLAN: diuresis MTDD
== END 2016-10-04 23:59 | disposition home or self-care (01) ==
LOC: SOUO 01:46
PROVIDERS: ATTEND Internal Medicine
DX: R06.02 Shortness of breath (principal); I48.0 Paroxysmal atrial fibrillation; Z91.041 Radiographic dye allergy status; D68.51 Activated protein C resistance; I10 Essential (primary) hypertension; E11.42 Type 2 diabetes mellitus with diabetic polyneuropathy; G47.33 Obstructive sleep apnea (adult) (pediatric); E78.5 Hyperlipidemia, unspecified; K21.9 Gastro-esophageal reflux disease without esophagitis; Z79.01 Long term (current) use of anticoagulants; Z79.84 Long term (current) use of oral hypoglycemic drugs; Z79.899 Other long term (current) drug therapy; Z86.718 Personal history of other venous thrombosis and embolism; R63.5 Abnormal weight gain
CPT/HCPCS: 93460; 99152; 99153; C1760; C1769; J0360; J1200; J1720; J1815; J2060; J2250; J3010; J7030; Q9967